=== PATIENT | male | born 1955 | race Caucasian/White ===

== ENCOUNTER 2016-12-07 14:52 | Inpatient (IN) | payer MEDICARE ==
[~2016-12-07] VITALS: Ht 182.9 cm; Wt 97.1 kg
[2016-12-07 16:30] VITALS: BP 142/85
[2016-12-07] MEDS ORDERED: MORP30TA PO (17:22)
[2016-12-07] MEDS ORDERED: MORPHINE SULFATE 2 MG/ML DISP.SYRIN. IV PRN (17:30)
[2016-12-07] MEDS ORDERED: PROCHLORPERAZINE 25 MG SUPP.RECT. PR PRN (17:30)
[2016-12-07] MEDS ORDERED: MAGNESIUM HYDROXIDE 2,400 MG/30 ML ORAL.SUSP. PO PRN (17:30)
[2016-12-07] MEDS ORDERED: oxyCODONE/APAP 5/325 1 TAB TABLET PO PRN ×2 (17:30)
[2016-12-07] MEDS ORDERED: PROCHLORPERAZINE 10 MG/2 ML VIAL. IV PRN (17:30)
[2016-12-07] MEDS ORDERED: oxyCODONE IR 5 MG TABLET PO PRN (17:30)
[2016-12-07] MEDS ORDERED: LORazepam 1 MG TABLET PO PRN (17:30)
[2016-12-07] MEDS ORDERED: CALCIUM CARBONATE 500 MG TAB.CHEW PO PRN (17:30)
[2016-12-07] MEDS ORDERED: ONDANSETRON PF 4 MG/2 ML VIAL. IV PRN (17:30)
[2016-12-07] MEDS ORDERED: LACTULOSE 20 GM/30 ML SOLUTION. PO PRN (17:30)
[2016-12-07] MEDS ORDERED: ZOLPIDEM 5 MG TABLET. PO PRN (17:30)
[2016-12-07] MEDS ORDERED: MAG HYDROX/ALUMINUM HYD/SIMETH 30 ML ORAL.SUSP PO PRN (17:30)
[2016-12-07] MEDS ORDERED: ACETAMINOPHEN 325 MG TABLET. PO PRN (17:30)
[2016-12-07] MEDS ORDERED: BISACODYL 10 MG SUPP.RECT. PR PRN (17:30)
[2016-12-07] MEDS ORDERED: FINA5TAB4 PO (17:32)
[2016-12-07] MEDS ORDERED: CARI350T14 PO (17:32)
[2016-12-07] MEDS ORDERED: SIMV40TA3 PO (17:32)
[2016-12-07] MEDS ORDERED: LAMO200T PO (17:32)
[2016-12-07] MEDS ORDERED: OLAN20TA7 PO (17:32)
[2016-12-07] MEDS ORDERED: LEVO100T5 PO (17:32)
[2016-12-07] MEDS ORDERED: RISP3TAB3 PO (17:32)
[2016-12-07] MEDS ORDERED: MELO15TA23 PO (17:32)
[2016-12-07] MEDS ORDERED: FLUO20CA8 PO (17:32)
[2016-12-07] MEDS ORDERED: OMEP40CA5 PO (17:32)
[2016-12-07] MEDS ORDERED: ZOLP10TA4 PO (17:32)
[2016-12-07] MEDS ORDERED: TAMS0.4C2 PO (17:32)
[2016-12-07] MEDS ORDERED: LOSA1TAB16 PO (17:32)
--- NOTE | 2016-12-07 17:43 | PDOC1 ---
History and Physical Date of Admission Date of Admission DATE: 12/07/16 TIME: 17:31 Identification/Chief Complaint Chief Complaint multiple falls this week Problems: Source Source: Caregiver, Chart review, Patient History of Present Illness History of Present Illness 61 y.o male, transferred from [place] today for need of pulmo service and higher level of care. HE was brought in via ambulance was he has fallen multiple times this week at home. NO head trauma, no injuries, hit his left elbow and buttock, These were all non injury falls luckily, Denies legs being weak but does have RLS. Lives alone at home, no assistive device to ambulate. Concerned sister found him on the ground, Pt not the best historian, HE is fidgety as I see him in ICU and restless. Sister is concerned that he is on too much pain meds, HE is on MS contin 100 BID along with Prozac, ambien 10mg and lamictal and other meds that all together do can cause sedation, He is on these for chronic back pain ( 3 back sxs), RLS. HE has been on these for many yrs. ER MD at [place] started him on a narcan gtt after temporarily "responding" being more awake after a narcan push.CXR was done routinely while he was being worked up for encephalopathy and there was a suspicion lung lesion, hence ff up by CT which shows a 5 CM OLIVIA mass concerning for primary malignancy, Also signs of some post obstructive pneumonitis. Denies weight loss, hemoptysis or dec appetite. WBC 12, HGb ok, NO coags, BMP: Creat 1.8, Na 133, K 3,1 albumin, 2.9, lactate normal at 0,.6. NO fevers. Pt QUIT SMOKING 15 yrs ago, was a heavy smoker before, All these findings relayed to pt and sister at bedside Past Medical History Pulmonary: Bronchitis Psych: Addictions, Depression Musculoskeletal: low back pain, Osteoarthritis Past Surgical History Past Surgical History: Other (left shoulder sx; back sx x3) Family History Family History: Hypertension Social History Smoke: Quit ALCOHOL: none Drugs: None Current Medications Current Medications Current Medications Ondansetron HCl (Zofran) 4 mg PRN Q6HRS PRN IV NAUSEA/VOMITING; Start 12/07/16 at 17:30; Status UNV Prochlorperazine Edisylate (Compazine) 10 mg PRN Q6HRS PRN IV NAUSEA/VOMITING; Start 12/07/16 at 17:30; Status UNV Prochlorperazine (Compazine) 25 mg PRN Q12HR PRN NC NAUSEA/VOMITING; Start 12/07 at 17:30; Status UNV Al Hydroxide/Mg Hydroxide (Mylanta Plus Xs) 30 ml PRN Q3HRS PRN PO HEARTBURN / GAS; Start 12/07/16 at 17:30; Status UNV Calcium Carbonate/ Glycine (Tums) 500 mg PRN Q3HRS PRN PO UPSET STOMACH; Start 12/07/16 at 17:30; Status UNV Zolpidem Tartrate (Ambien) 10 mg PRN QHS PRN PO INSOMNIA, MAY REPEAT IN 1HR; Start 12/07/16 at 17:30; Status UNV Oxycodone HCl (Roxicodone) 5 mg PRN Q3HRS PRN PO BREAKTHROUGH PAIN; Start at 17:30; Status UNV Morphine Sulfate 2 mg PRN Q2HR PRN IV PAIN; Start 12/07/16 at 17:30; Status UNV Oxycodone/ Acetaminophen (Percocet 5/325) 1 tab PRN Q4HRS PRN PO MILD PAIN, 1ST CHOICE; Start 12/07/16 at 17:30; Status UNV Oxycodone/ Acetaminophen (Percocet 5/325) 2 tab PRN Q4HRS PRN PO MODERATE PAIN , SEVERE PAIN; Start 12/07/16 at 17:30; Status UNV Acetaminophen (Tylenol) 650 mg PRN Q6HRS PRN PO Headaches, Temp > 101.5F; Start 12/07/16 at 17:30; Status UNV Docusate Sodium (Colace) 100 mg BID PO ; Start 12/07/16 at 21:00; Status UNV Magnesium Hydroxide (Milk Of Magnesia) 2,400 mg PRN Q12HR PRN PO CONSTIPATION; Start 12/07/16 at 17:30; Status UNV Lactulose 20 gm PRN Q12HR PRN PO CONSTIPATION; Start 12/07/16 at 17:30; Status UNV Bisacodyl (Dulcolax Supp) 10 mg PRN DAILY PRN NC CONSTIPATION; Start 12/07/16 at 17:30; Status UNV Heparin Sodium (Porcine) (Heparin Sq) 5,000 unit Q8HRS SQ ; Start 12/07/16 at 22: 00; Status UNV Lorazepam (Ativan) 2 mg PRN Q4HRS PRN IV ANXIETY / AGITATION; Start 12/07/16 at 17:30; Status UNV Lorazepam (Ativan) 1 mg PRN Q6HRS PRN PO ANXIETY / AGITATION; Start 12/07/16 at 17:30; Status UNV Morphine Sulfate (Ms Contin) 30 mg BID PO ; Start 12/07/16 at 21:00; Status UNV Active Scripts Active Reported Morphine Sulfate 30 Mg Tablet 100 Mg PO BID Allergies Allergies: Coded Allergies: No Known Drug Allergies (Unverified , 12/07/16) ROS Review of System limited, restless, but he denies anything Physical Exam General: Alert, Oriented X3, Cooperative, No acute distress HEENT: Atraumatic, PERRLA Lungs: Normal air movement Heart: S1S2, RRR, no thrills, no rubs, no gallops, no murmurs Cardiovascular: S1, S2 Breasts: Normal, Rt breast nml w/o mass, Lt breast nml w/o mass, Nipples normal Abdomen: Normal bowel sounds, Soft, No tenderness, No hepatosplenomegaly, No masses Male Genitals Exam: normal genitalia, normal prostate Rectal Exam: not examined PELVIC: Nml ext genitalia Extremities: No clubbing, No cyanosis, No edema, Normal pulses, No tenderness/ swelling Skin: No rashes, No breakdown, No significant lesion Neuro: Normal gait, Normal speech, Strength at 5/5 X4 ext, Normal tone, Sensation intact, Cranial nerves 3-12 NL, Reflexes 2+ Psych/Mental Status: Mental status NL, Mood NL VTE Prophylaxis Ordered VTE Prophylaxis Devices: Yes VTE Pharmacological Prophylaxi: Yes Assessment/Plan Assessment/Plan 1. 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 NEw 5 cm OLIVIA mass in an ex smoker suspicious for malignancy 3. RLS 4. Chronic back pain on high doses opiates 5. PRev smoker, quit 15yrs ago 6. Post obstructive pneumonitis 7. REactive lymphadenopathy 8. MOd PCM with albumin 2.9 9. Hyponatremia 10, Hypokalemia PLAn: Admit 2 MN MEd sx floor is ok Dc narcan gtt - wide awake, getting restless actually, and also to avoid withdrawal SZ Lower dose of pain meds and some anxiolytics Will need tissue bx and metastatic w/up for new lung mass PUlmo consult IR consult for lung bx NPO post MN in case bx Reg diet tonight Check coags prior to bx BAsic labs again sarai Replace K orally (k 3.1) Start empiric abx given pneumonitis, WBC 12 and lymphadenopathy DVT prophy heparin SQ NO nephrotoxins (Creat 1.8) Check UA re MATTHEW IVF for MATTHEW and hyponatremia Nutrition consult for pCM Seen in ICU 10 HI LOPEZ MD Dec 07, 2016 17:43
[2016-12-07] MEDS ORDERED: POTASSIUM CHLORIDE 20 MEQ TABLET.ER. PO ONE (17:45)
[2016-12-07] MEDS ORDERED: levOFLOXacin PER PHARMACY. MC PRN (17:45)
[2016-12-07 17:50] VITALS: BP 134/77
[2016-12-07] MEDS: IV NORMAL SALINE 1000ML BAG 1,000 ML IV SCH (17:55)
[2016-12-07 20:00] VITALS: BP 108/66
[2016-12-07 20:42] LABS: BILIRUBIN,URINE NEGATIVE (NEG); GLUCOSE,URINE NEGATIVE (NEG); NITRITE,URINE NEGATIVE (NEG); PROTEIN,URINE NEGATIVE (NEG-TRACE)
[2016-12-07 20:46] LABS: BACTERIA,URINE 0 /HPF (0-FEW); SQUAMOUS EPITHELIAL CELL,UR OCC /LPF; WBC,URINE OCC /HPF (0-4)
[2016-12-07] MEDS: MORPHINE ER 30 MG TABLET.ER PO SCH (21:00)
[2016-12-07] MEDS: DOCUSATE SODIUM 100 MG CAPSULE. PO SCH (21:19)
[2016-12-07] MEDS: CARISOPRODOL 350 MG TABLET PO SCH (21:19)
[2016-12-07] MEDS: risperiDONE 1 MG TABLET. PO SCH (21:19)
[2016-12-07] MEDS: SIMVASTATIN 40 MG TABLET. PO SCH (21:19)
[2016-12-07] MEDS: lamoTRIgine 100 MG TABLET. PO SCH (21:19)
[2016-12-07] MEDS: OLANZapine 5 MG TABLET PO SCH (21:19)
[2016-12-07] MEDS: HEPARIN PF for SUB-Q USE 5,000 UNIT/0.5 ML VIAL. SQ SCH (22:24)
[2016-12-07 23:29] VITALS: BP 95/57
[2016-12-08 04:00] VITALS: BP 111/66
[2016-12-08 04:04] LABS: BASO % 0 % (0-3); EOS % 1 % (0-3); HEMATOCRIT 30.7 % (39.0-53.0); HEMOGLOBIN 10.3 g/dL (13.0-17.5); LYMPH # 1.6 x10^3/uL (1.0-4.8); LYMPH % 17 % (24-48); MEAN CORPUSCULAR HEMOGLOBIN 28 pg (25-35); MEAN CORPUSCULAR HGB CONC 34 g/dL (31-37); MEAN CORPUSCULAR VOLUME 84 fL (79-100); MONO % 5 % (0-9); NEUT % 77 % (31-73); PLATELET COUNT 204 x10^3/uL (140-400); RED BLOOD COUNT 3.64 x10^6/uL (4.30-5.70); RED CELL DISTRIBUTION WIDTH 14.2 % (11.5-14.5); WHITE BLOOD COUNT 9.7 x10^3/uL (4.0-11.0)
[2016-12-08 04:13] LABS: INR 1.2 (0.8-1.1); PROTHROMBIN TIME PATIENT 14.5 SEC (11.7-14.0)
[2016-12-08 04:33] LABS: ALBUMIN 2.4 g/dL (3.4-5.0); ALBUMIN/GLOBULIN RATIO 0.7 (1.0-1.7); CREATININE 1.1 mg/dL (0.7-1.3); GFR 68.3; MAGNESIUM 2.3 mg/dL (1.8-2.4); PHOSPHORUS 2.7 mg/dL (2.6-4.7); POTASSIUM 3.3 mmol/L (3.5-5.1); TOTAL BILIRUBIN 0.3 mg/dL (0.2-1.0); TOTAL PROTEIN 5.8 g/dL (6.4-8.2)
[2016-12-08] MEDS: LEVOTHYROXINE 100 MCG TABLET PO SCH (06:25)
[2016-12-08] MEDS: HEPARIN PF for SUB-Q USE 5,000 UNIT/0.5 ML VIAL. SQ SCH ×3 (06:30→22:03)
[2016-12-08 07:05] VITALS: BP 126/60
[2016-12-08] MEDS: PANTOPRAZOLE 40 MG TABLET.DR. PO SCH ×2 (07:30→12:31)
[2016-12-08] MEDS: risperiDONE 1 MG TABLET. PO SCH ×3 (09:00→21:57)
[2016-12-08] MEDS: DOCUSATE SODIUM 100 MG CAPSULE. PO SCH ×3 (09:00→21:58)
[2016-12-08] MEDS: MORPHINE ER 30 MG TABLET.ER PO SCH ×3 (09:00→21:58)
[2016-12-08] MEDS: LOSARTAN POTASSIUM 50 MG TABLET. PO SCH ×2 (09:00→12:34)
[2016-12-08] MEDS ORDERED: NON FORMULARY ITEM (Losartan/Hydrochlorothiazide (Losartan-Hctz 50-12.5 Mg Tab) 1 TAB) PO SCH (09:00)
[2016-12-08] MEDS: TAMSULOSIN 0.4 MG CAP.ER.24H. PO SCH ×2 (09:00→12:30)
[2016-12-08] MEDS: FINASTERIDE 5 MG TABLET. PO SCH ×2 (09:00→12:31)
[2016-12-08] MEDS: FLUoxetine HCL 20 MG CAPSULE PO SCH ×2 (09:00→12:30)
[2016-12-08] MEDS: hydroCHLOROthiazide 12.5 MG CAPSULE PO SCH ×2 (09:00→12:31)
[2016-12-08] MEDS: CARISOPRODOL 350 MG TABLET PO SCH ×3 (09:00→21:57)
[2016-12-08] MEDS: lamoTRIgine 100 MG TABLET. PO SCH ×3 (09:00→21:58)
[2016-12-08] MEDS ORDERED: POTASSIUM CHLORIDE 20MEQ 50 ML IV ONE (09:45)
[2016-12-08] MEDS: IV NORMAL SALINE 1000ML BAG 1,000 ML IV SCH ×2 (09:49→13:45)
--- NOTE | 2016-12-08 09:57 | PDOC ---
Provider Note Provider Note dictated will do bronch today. if non-diagnostic, then ct guided biopsy PJ RUBIN MD Dec 08, 2016 09:57
--- NOTE | 2016-12-08 10:18 | CONS ---
DATE OF CONSULTATION: 12/08/2016 PULMONARY CONSULTATION ATTENDING PHYSICIAN: Dr. Elmore. REASON FOR CONSULTATION: Lung mass. HISTORY OF PRESENT ILLNESS: The patient is a 61-year-old male who has been a smoker for 34 years. He quit 10 years ago. He was brought into [facility] after he has fallen multiple times. There was no head trauma. The patient was noted to have an abnormal CT chest. I have personally reviewed the CT chest and it shows a 5 cm mass in the left upper lobe. There is also left hilar adenopathy and also adenopathy in the aortopulmonary window. There are infiltrates in the left upper lobe area. These findings are suggesting a primary malignancy with possible postobstructive process. There was mild precarinal adenopathy. The patient has been losing weight, lost about 20 pounds. No headaches. No nausea, vomiting. He does have some mild diarrhea. No focal weakness, but has overall generalized weakness. He was taking too much narcotics for his back and neck pain, which he had for 14 years. I have been asked to see him for further evaluation. He is now fully awake and following commands. PAST MEDICAL HISTORY: Suspected COPD, could be moderate to severe; history of narcotic dependence, history of depression, low back pain and osteoarthritis. PAST SURGICAL HISTORY: Left shoulder surgery and back surgery. FAMILY HISTORY: Hypertension. ALLERGIES: None. SOCIAL HISTORY: Smoker for 34 years before quitting 10 years ago. 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 MEDICATIONS: All reviewed as listed in the MRAD. REVIEW OF SYSTEMS: Twelve-point system obtained, pertinent positives discussed in history of present illness, otherwise noncontributory. All systems that were negative were reviewed as well. PHYSICAL EXAMINATION: VITAL SIGNS: Reviewed. Pulse ox 94% on room air, afebrile. NECK: Supple. LUNGS: Diminished breath sounds. CARDIOVASCULAR: Regular rate and rhythm. ABDOMEN: Soft, nontender. EXTREMITIES: With no pitting edema. LABORATORY DATA: Reviewed. White cell count 9.7, hemoglobin 10.3, platelets are 204. BUN 14, creatinine 1.1. INR 1.2. IMPRESSION: 1. A 5 cm left upper lobe mass with left hilar and aortopulmonary mediastinal adenopathy. These findings are highly suggestive of primary bronchogenic cancer. 2. Possible postobstructive pneumonitis. 3. Underlying suspected chronic obstructive pulmonary disease. 4. Chronic narcotic dependence. RECOMMENDATIONS: 1. Discussed with the patient and his sister. Risks and benefits of bronchoscopy were explained and they agreed to proceed with the procedure. 2. If the bronchoscopy is nondiagnostic, then we will do a CT-guided biopsy. 3. We will obtain full PFTs. 4. Continue bronchodilators. 5. Continue present empiric antibiotics. 6. Discussed with Dr. Elmore. We will follow along with you. Further recommendations to follow. PJ RUBIN MD DR: MAX/nahid JOB#: [id number] / [id number]
[2016-12-08] MEDS ORDERED: IV RINGERS,LACTATED 1000ML 1,000 ML IV SCH (10:44)
[2016-12-08] MEDS ORDERED: fentaNYL PF VIAL 100 MCG/2 ML VIAL IV PRN ×2 (10:45)
[2016-12-08] MEDS ORDERED: PROCHLORPERAZINE 10 MG/2 ML VIAL. IV PRN (10:45)
[2016-12-08] MEDS ORDERED: ONDANSETRON PF 4 MG/2 ML VIAL. IV PRN (10:45)
[2016-12-08] MEDS ORDERED: HYDROmorphone 2 MG/ML VIAL IV PRN (10:45)
[2016-12-08] MEDS ORDERED: LIDOCAINE 1% 1 ML SYRINGE. ID PRN (10:45)
[2016-12-08] MEDS ORDERED: MORPHINE SULFATE 2 MG/ML DISP.SYRIN. IV PRN (10:45)
[2016-12-08] MEDS ORDERED: ALBUTEROL SULFATE 2.5 MG/3 ML NEBU. ONE (10:47)
[2016-12-08] MEDS ORDERED: LIDOCAINE 2% PF Vial for OR 5 ML VIAL. ONE (10:49)
[2016-12-08] MEDS ORDERED: PROPOFOL 20 ML IV ONE (10:49)
[2016-12-08] MEDS ORDERED: ALBUTEROL SULFATE 2.5 MG/3 ML NEBU. NEB ONE (11:00)
--- NOTE | 2016-12-08 11:01 | PDOC ---
PROGRESS NOTES Chief Complaint Chief Complaint 1. 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 NEw 5 cm OLIVIA mass in an ex smoker suspicious for malignancy 3. RLS 4. Chronic back pain on high doses opiates 5. PRev smoker, quit 15yrs ago 6. Post obstructive pneumonitis 7. REactive lymphadenopathy 8. MOd PCM with albumin 2.9 9. Hyponatremia, mild 133 10, Hypokalemia, replaced History of Present Illness History of Present Illness Up in bed, no issues/calls overnight OFf narcan gtt - my current pain regimen working - not withdrawing and not drowsy at all Dw pulmo, bronch today, If unable to get tissue sample, IR biopsy NO hemoptysis, SOA etc OVF running for hyponat K low - will replace iV since NPO for bronch PLAN: Cont empiric levaquin per pharmacy for post obstructive pneumonitis on CT Monitor MATTHEW and hyponat Bronch later, if not successful then IR lung bx. If cancer, will need heme onc Cont adderall - needs it Dw family and pulmo and RN Vitals Vitals Vital Signs Date Time Temp Pulse Resp B/P (MAP) Pulse Ox O2 Delivery O2 Flow Rate FiO2 12/08/16 10:45 Room Air 3.0 12/08/16 10:45 97.6 67 18 95 97.6 12/08/16 07:05 126/60 (82) Physical Exam General: Alert, Oriented X3, Cooperative, No acute distress Abdomen: Normal bowel sounds, Soft, No tenderness, No hepatosplenomegaly, No masses Extremities: No clubbing, No cyanosis, No edema, Normal pulses, No tenderness/ swelling Skin: No rashes, No breakdown, No significant lesion Labs LABS Laboratory Tests Test 12/07/16 20:30 12/08/16 03:20 Urine Collection Type Unknown Urine Color Yellow Urine Clarity Clear Urine pH 6.0 Urine Specific [place] <=1.005 Urine Protein Negative mg/dL (NEG-TRACE) Urine Glucose (UA) Negative mg/dL (NEG) Urine Ketones (Stick) Negative mg/dL (NEG) Urine Blood Moderate (NEG) Urine Nitrite Negative (NEG) Urine Bilirubin Negative (NEG) Urine Urobilinogen Dipstick 1.0 mg/dL (0.2 mg/dL) Urine Leukocyte Esterase Negative (NEG) Urine RBC 11-20 /HPF (0-2) Urine WBC Occ /HPF (0-4) Urine Squamous Epithelial Cells Occ /LPF Urine Bacteria 0 /HPF (0-FEW) White Blood Count 9.7 x10^3/uL (4.0-11.0) Red Blood Count 3.64 x10^6/uL (4.30-5.70) Hemoglobin 10.3 g/dL (13.0-17.5) Hematocrit 30.7 % (39.0-53.0) Mean Corpuscular Volume 84 fL (79-100) Mean Corpuscular Hemoglobin 28 pg (25-35) Mean Corpuscular Hemoglobin Concent 34 g/dL (31-37) Red Cell Distribution Width 14.2 % (11.5-14.5) Platelet Count 204 x10^3/uL (140-400) Neutrophils (%) (Auto) 77 % (31-73) Lymphocytes (%) (Auto) 17 % (24-48) Monocytes (%) (Auto) 5 % (0-9) Eosinophils (%) (Auto) 1 % (0-3) Basophils (%) (Auto) 0 % (0-3) Neutrophils # (Auto) 7.5 x10^3uL (1.8-7.7) Lymphocytes # (Auto) 1.6 x10^3/uL (1.0-4.8) Monocytes # (Auto) 0.5 x10^3/uL (0.0-1.1) Eosinophils # (Auto) 0.1 x10^3/uL (0.0-0.7) Basophils # (Auto) 0.0 x10^3/uL (0.0-0.2) Prothrombin Time 14.5 SEC (11.7-14.0) Prothromb Time International Ratio 1.2 (0.8-1.1) Sodium Level 138 mmol/L (136-145) Potassium Level 3.3 mmol/L (3.5-5.1) Chloride Level 103 mmol/L (98-107) Carbon Dioxide Level 29 mmol/L (21-32) Anion Gap 6 (6-14) Blood Urea Nitrogen 14 mg/dL (8-26) Creatinine 1.1 mg/dL (0.7-1.3) Estimated GFR (Cockcroft-Gault) 68.3 BUN/Creatinine Ratio 13 (6-20) Glucose Level 152 mg/dL (70-99) Calcium Level 8.0 mg/dL (8.5-10.1) Phosphorus Level 2.7 mg/dL (2.6-4.7) Magnesium Level 2.3 mg/dL (1.8-2.4) Total Bilirubin 0.3 mg/dL (0.2-1.0) Aspartate Amino Transf (AST/SGOT) 70 U/L (15-37) Alanine Aminotransferase (ALT/SGPT) 43 U/L (16-63) Alkaline Phosphatase 95 U/L (46-116) Total Protein 5.8 g/dL (6.4-8.2) Albumin 2.4 g/dL (3.4-5.0) Albumin/Globulin Ratio 0.7 (1.0-1.7) Review of Systems Review of Systems denies 14pt Comment Review of Relevant I have reviewed the following items jelly (where applicable) has been applied. Labs Laboratory Tests Test 12/07/16 20:30 12/08/16 03:20 Urine Collection Type Unknown Urine Color Yellow Urine Clarity Clear Urine pH 6.0 Urine Specific [place] <=1.005 Urine Protein Negative mg/dL (NEG-TRACE) Urine Glucose (UA) Negative mg/dL (NEG) Urine Ketones (Stick) Negative mg/dL (NEG) Urine Blood Moderate (NEG) Urine Nitrite Negative (NEG) Urine Bilirubin Negative (NEG) Urine Urobilinogen Dipstick 1.0 mg/dL (0.2 mg/dL) Urine Leukocyte Esterase Negative (NEG) Urine RBC 11-20 /HPF (0-2) Urine WBC Occ /HPF (0-4) Urine Squamous Epithelial Cells Occ /LPF Urine Bacteria 0 /HPF (0-FEW) White Blood Count 9.7 x10^3/uL (4.0-11.0) Red Blood Count 3.64 x10^6/uL (4.30-5.70) Hemoglobin 10.3 g/dL (13.0-17.5) Hematocrit 30.7 % (39.0-53.0) Mean Corpuscular Volume 84 fL (79-100) Mean Corpuscular Hemoglobin 28 pg (25-35) Mean Corpuscular Hemoglobin Concent 34 g/dL (31-37) Red Cell Distribution Width 14.2 % (11.5-14.5) Platelet Count 204 x10^3/uL (140-400) Neutrophils (%) (Auto) 77 % (31-73) Lymphocytes (%) (Auto) 17 % (24-48) Monocytes (%) (Auto) 5 % (0-9) Eosinophils (%) (Auto) 1 % (0-3) Basophils (%) (Auto) 0 % (0-3) Neutrophils # (Auto) 7.5 x10^3uL (1.8-7.7) Lymphocytes # (Auto) 1.6 x10^3/uL (1.0-4.8) Monocytes # (Auto) 0.5 x10^3/uL (0.0-1.1) Eosinophils # (Auto) 0.1 x10^3/uL (0.0-0.7) Basophils # (Auto) 0.0 x10^3/uL (0.0-0.2) Prothrombin Time 14.5 SEC (11.7-14.0) Prothromb Time International Ratio 1.2 (0.8-1.1) Sodium Level 138 mmol/L (136-145) Potassium Level 3.3 mmol/L (3.5-5.1) Chloride Level 103 mmol/L (98-107) Carbon Dioxide Level 29 mmol/L (21-32) Anion Gap 6 (6-14) Blood Urea Nitrogen 14 mg/dL (8-26) Creatinine 1.1 mg/dL (0.7-1.3) Estimated GFR (Cockcroft-Gault) 68.3 BUN/Creatinine Ratio 13 (6-20) Glucose Level 152 mg/dL (70-99) Calcium Level 8.0 mg/dL (8.5-10.1) Phosphorus Level 2.7 mg/dL (2.6-4.7) Magnesium Level 2.3 mg/dL (1.8-2.4) Total Bilirubin 0.3 mg/dL (0.2-1.0) Aspartate Amino Transf (AST/SGOT) 70 U/L (15-37) Alanine Aminotransferase (ALT/SGPT) 43 U/L (16-63) Alkaline Phosphatase 95 U/L (46-116) Total Protein 5.8 g/dL (6.4-8.2) Albumin 2.4 g/dL (3.4-5.0) Albumin/Globulin Ratio 0.7 (1.0-1.7) Laboratory Tests Test 12/07/16 20:30 12/08/16 03:20 Urine Collection Type Unknown Urine Color Yellow Urine Clarity Clear Urine pH 6.0 Urine Specific [place] <=1.005 Urine Protein Negative mg/dL (NEG-TRACE) Urine Glucose (UA) Negative mg/dL (NEG) Urine Ketones (Stick) Negative mg/dL (NEG) Urine Blood Moderate (NEG) Urine Nitrite Negative (NEG) Urine Bilirubin Negative (NEG) Urine Urobilinogen Dipstick 1.0 mg/dL (0.2 mg/dL) Urine Leukocyte Esterase Negative (NEG) Urine RBC 11-20 /HPF (0-2) Urine WBC Occ /HPF (0-4) Urine Squamous Epithelial Cells Occ /LPF Urine Bacteria 0 /HPF (0-FEW) White Blood Count 9.7 x10^3/uL (4.0-11.0) Red Blood Count 3.64 x10^6/uL (4.30-5.70) Hemoglobin 10.3 g/dL (13.0-17.5) Hematocrit 30.7 % (39.0-53.0) Mean Corpuscular Volume 84 fL (79-100) Mean Corpuscular Hemoglobin 28 pg (25-35) Mean Corpuscular Hemoglobin Concent 34 g/dL (31-37) Red Cell Distribution Width 14.2 % (11.5-14.5) Platelet Count 204 x10^3/uL (140-400) Neutrophils (%) (Auto) 77 % (31-73) Lymphocytes (%) (Auto) 17 % (24-48) Monocytes (%) (Auto) 5 % (0-9) Eosinophils (%) (Auto) 1 % (0-3) Basophils (%) (Auto) 0 % (0-3) Neutrophils # (Auto) 7.5 x10^3uL (1.8-7.7) Lymphocytes # (Auto) 1.6 x10^3/uL (1.0-4.8) Monocytes # (Auto) 0.5 x10^3/uL (0.0-1.1) Eosinophils # (Auto) 0.1 x10^3/uL (0.0-0.7) Basophils # (Auto) 0.0 x10^3/uL (0.0-0.2) Prothrombin Time 14.5 SEC (11.7-14.0) Prothromb Time International Ratio 1.2 (0.8-1.1) Sodium Level 138 mmol/L (136-145) Potassium Level 3.3 mmol/L (3.5-5.1) Chloride Level 103 mmol/L (98-107) Carbon Dioxide Level 29 mmol/L (21-32) Anion Gap 6 (6-14) Blood Urea Nitrogen 14 mg/dL (8-26) Creatinine 1.1 mg/dL (0.7-1.3) Estimated GFR (Cockcroft-Gault) 68.3 BUN/Creatinine Ratio 13 (6-20) Glucose Level 152 mg/dL (70-99) Calcium Level 8.0 mg/dL (8.5-10.1) Phosphorus Level 2.7 mg/dL (2.6-4.7) Magnesium Level 2.3 mg/dL (1.8-2.4) Total Bilirubin 0.3 mg/dL (0.2-1.0) Aspartate Amino Transf (AST/SGOT) 70 U/L (15-37) Alanine Aminotransferase (ALT/SGPT) 43 U/L (16-63) Alkaline Phosphatase 95 U/L (46-116) Total Protein 5.8 g/dL (6.4-8.2) Albumin 2.4 g/dL (3.4-5.0) Albumin/Globulin Ratio 0.7 (1.0-1.7) Medications Current Medications Ondansetron HCl (Zofran) 4 mg PRN Q6HRS PRN IV NAUSEA/VOMITING; Start 12/07/16 at 17:30 Prochlorperazine Edisylate (Compazine) 10 mg PRN Q6HRS PRN IV NAUSEA/VOMITING; Start 12/07/16 at 17:30 Prochlorperazine (Compazine) 25 mg PRN Q12HR PRN OR NAUSEA/VOMITING; Start 12/07 at 17:30 Al Hydroxide/Mg Hydroxide (Mylanta Plus Xs) 30 ml PRN Q3HRS PRN PO HEARTBURN / GAS; Start 12/07/16 at 17:30 Calcium Carbonate/ Glycine (Tums) 500 mg PRN Q3HRS PRN PO UPSET STOMACH; Start 12/07/16 at 17:30 Zolpidem Tartrate (Ambien) 10 mg PRN QHS PRN PO INSOMNIA, MAY REPEAT IN 1HR; Start 12/07/16 at 17:30 Oxycodone HCl (Roxicodone) 5 mg PRN Q3HRS PRN PO BREAKTHROUGH PAIN; Start at 17:30 Morphine Sulfate 2 mg PRN Q2HR PRN IV PAIN; Start 12/07/16 at 17:30 Oxycodone/ Acetaminophen (Percocet 5/325) 1 tab PRN Q4HRS PRN PO MILD PAIN, 1ST CHOICE; Start 12/07/16 at 17:30 Oxycodone/ Acetaminophen (Percocet 5/325) 2 tab PRN Q4HRS PRN PO MODERATE PAIN , SEVERE PAIN; Start 12/07/16 at 17:30 Acetaminophen (Tylenol) 650 mg PRN Q6HRS PRN PO Headaches, Temp > 101.5F; Start 12/07/16 at 17:30 Docusate Sodium (Colace) 100 mg BID PO Last administered on 12/07/16 21:19; Start 12/07/16 at 21:00 Magnesium Hydroxide (Milk Of Magnesia) 2,400 mg PRN Q12HR PRN PO CONSTIPATION; Start 12/07/16 at 17:30 Lactulose 20 gm PRN Q12HR PRN PO CONSTIPATION; Start 12/07/16 at 17:30 Bisacodyl (Dulcolax Supp) 10 mg PRN DAILY PRN OR CONSTIPATION; Start 12/07/16 at 17:30 Heparin Sodium (Porcine) (Heparin Sq) 5,000 unit Q8HRS SQ Last administered on 12/08/16 06:30; Start 12/07/16 at 22:00 Lorazepam (Ativan) 2 mg PRN Q4HRS PRN IV ANXIETY / AGITATION; Start 12/07/16 at 17:30 Lorazepam (Ativan) 1 mg PRN Q6HRS PRN PO ANXIETY / AGITATION Last administered on 12/07/16 17:48; Start 12/07/16 at 17:30 Morphine Sulfate (Ms Contin) 30 mg BID PO ; Start 12/07/16 at 21:00 Levofloxacin/ Dextrose (Levaquin Per Pharmacy) 1 each PRN DAILY PRN MC SEE COMMENTS; Start 12/07/16 at 17:45 Sodium Chloride 1,000 ml @ 100 mls/hr Q10H IV Last administered on 12/08/16 09:49; Start 12/07/16 at 17:45 Potassium Chloride (Klor-Con) 40 meq 1X ONCE PO Last administered on 12/07/16 18:47; Start 12/07/16 at 17:45; Stop 12/07/16 at 17:50; Status DC Levofloxacin/ Dextrose 100 ml @ 100 mls/hr Q24H IV Last administered on 18:39; Start 12/07/16 at 18:00 Carisoprodol (Soma) 350 mg BID PO Last administered on 12/07/16 21:19; Start at 21:00 Finasteride (Proscar) 5 mg DAILY PO ; Start 12/08/16 at 09:00 Fluoxetine HCl (PROzac) 20 mg DAILY PO ; Start 12/08/16 at 09:00 Levothyroxine Sodium (Synthroid) 100 mcg DAILY07 PO Last administered on 06:25; Start 12/08/16 at 07:00 Simvastatin (Zocor) 40 mg QHS PO Last administered on 12/07/16 21:19; Start 12/07/16 at 21:00 Tamsulosin HCl (Flomax) 0.4 mg DAILY PO ; Start 12/08/16 at 09:00 Lamotrigine (LaMICtal) 200 mg BID PO Last administered on 12/07/16 21:19; Start 12/07/16 at 21:00 Non-Formulary Medication 1 tab DAILY PO ; Start 12/08/16 at 09:00; Status UNV Olanzapine (ZyPREXA) 20 mg QHS PO Last administered on 12/07/16 21:19; Start at 21:00 Pantoprazole Sodium (Protonix) 40 mg DAILYAC PO ; Start 12/08/16 at 07:30 Risperidone (RisperDAL) 3 mg BID PO Last administered on 12/07/16 21:19; Start 12/07/16 at 21:00 Losartan Potassium (Cozaar) 50 mg DAILY PO ; Start 12/08/16 at 09:00 Hydrochlorothiazide (Microzide) 12.5 mg DAILY PO ; Start 12/08/16 at 09:00 Potassium Chloride 50 ml @ 50 mls/hr 1X ONCE IV ; Start 12/08/16 at 09:45; Stop 12/08/16 at 10:44; Status UNV Potassium Chloride 100 ml @ 100 mls/hr Q1H IV ; Start 12/08/16 at 10:00; Stop 12/08/16 at 11:59 Ondansetron HCl (Zofran) 4 mg PRN Q6HRS PRN IV NAUSEA/VOMITING; Start 12/08/16 at 10:45; Stop 12/09/16 at 10:44 Fentanyl Citrate (Fentanyl 2ml Vial) 25 mcg PRN Q5MIN PRN IV MILD PAIN; Start 12/08/16 at 10:45; Stop 12/09/16 at 10:44 Fentanyl Citrate (Fentanyl 2ml Vial) 50 mcg PRN Q5MIN PRN IV MODERATE PAIN; Start 12/08/16 at 10:45; Stop 12/09/16 at 10:44 Morphine Sulfate 1 mg PRN Q10MIN PRN IV SEVERE PAIN; Start 12/08/16 at 10:45; Stop 12/09/16 at 10:44 Ringer's Solution 1,000 ml @ 30 mls/hr Q24H IV ; Start 12/08/16 at 10:44; Stop 12/08/16 at 22:43 Lidocaine HCl 2 ml PRN 1X PRN ID PRIOR TO IV START; Start 12/08/16 at 10:45; Stop 12/09/16 at 10:44 Hydromorphone HCl (Dilaudid) 0.5 mg PRN Q10MIN PRN IV SEV PAIN, Second choice; Start 12/08/16 at 10:45; Stop 12/09/16 at 10:44 Prochlorperazine Edisylate (Compazine) 5 mg PACU PRN PRN IV NAUSEA, MRX1; Start 12/08/16 at 10:45; Stop 12/09/16 at 10:44 Albuterol Sulfate (Ventolin Neb Soln) 2.5 mg 1X ONCE NEB Last administered on 12/08/16t 10:53; Start 12/08/16 at 11:00; Stop 12/08/16 at 11:01 Active Scripts Active Reported Fluoxetine Hcl 20 Mg Capsule 1 Cap PO DAILY Finasteride 5 Mg Tablet 5 Mg PO DAILY Lamotrigine 200 Mg Tablet 1 Tab PO BID Olanzapine 20 Mg Tablet 1 Tab PO QHS Losartan-Hctz 50-12.5 Mg Tab (Losartan/Hydrochlorothiazide) 1 Each Tablet 1 Tab PO DAILY Omeprazole 40 Mg Capsule.dr 1 Cap PO DAILY Simvastatin 40 Mg Tablet 1 Tab PO QHS Meloxicam 15 Mg Tablet 1 Tab PO DAILY Tamsulosin Hcl 0.4 Mg Cap.er.24h 1 Cap PO DAILY Levothyroxine Sodium 100 Mcg Tablet 1 Tab PO DAILY Risperidone 3 Mg Tablet 1 Tab PO BID Carisoprodol 350 Mg Tablet 1 Tab PO BID Zolpidem Tartrate 10 Mg Tablet 1 Tab PO QHS Morphine Sulfate 30 Mg Tablet 100 Mg PO BID Vitals/I & O Vital Sign - Last 24 Hours 12/07/16 12/07/16 12/07/16 12/07/16 16:30 16:30 17:50 20:00 Temp 98.4 98.4 98.6 98.4 98.4 98.6 Pulse 96 98 79 Resp 16 16 B/P (MAP) 142/85 (104) 134/77 (96) 108/66 (80) Pulse Ox 95 98 90 O2 Delivery Room Air Room Air Room Air Room Air 12/07/16 12/07/16 12/08/16 12/08/16 20:00 23:29 04:00 07:05 Temp 98.6 98.3 98.2 98.6 98.3 98.2 Pulse 56 88 77 Resp 16 18 19 B/P (MAP) 95/57 (70) 111/66 (81) 126/60 (82) Pulse Ox 93 94 94 O2 Delivery Room Air Nasal Cannula Nasal Cannula Room Air O2 Flow Rate 3.0 3.0 12/08/16 12/08/16 12/08/16 08:00 10:45 10:45 Temp 97.6 97.6 Pulse 67 Resp 18 Pulse Ox 95 O2 Delivery Room Air Room Air O2 Flow Rate 3.0 3.0 Intake and Output 12/07/16 12/07/16 12/08/16 15:00 23:00 07:00 Intake Total 250 ml Output Total 1300 ml Balance -1050 ml HI LOPEZ MD Dec 08, 2016 11:01
--- NOTE | 2016-12-08 11:50 | PDOC4 ---
PROCEDURE Procedure BRONCH endobronchial lesion OLIVIA, biopsy done PJ RUBIN MD Dec 08, 2016 11:50
--- NOTE | 2016-12-08 12:01 | OP ---
DATE OF SURGERY: BRONCHOSCOPY NOTE ATTENDING PHYSICIAN: Dr. Elmore. PROCEDURE: Bronchoscopy. INDICATION: Lung mass. DESCRIPTION OF PROCEDURE: Informed consent was obtained from the patient and his sister. They both agreed to proceed with the procedure. All risks and benefits were explained. Propofol was used by Anesthesia for sedation. Bronchoscope was introduced through the left nostril. The upper airway was passed. Vocal cords move equally with respiration. Trachea was entered. No tracheal lesions seen. Mild frothy secretions seen. Kathleen was sharp. The right lung was first examined. All subsegments of right upper, right middle and right lower lobe were examined. No significant purulent secretions seen and no endobronchial lesions seen. The left lung was then examined. There was a large endobronchial lesion totally occluding the left upper lobe bronchus. This was causing narrowing of the lingular opening as well. Multiple biopsies x 3 were performed along with cytology brush and bronchial wash from this area. No significant bleeding post-biopsy were noticed. The left lower lobe was patent. The patient tolerated the procedure well. IMPRESSION: 1. Large endobronchial mass causing total occlusion of the opening of the left upper lobe bronchus. 2. Biopsy x 3, cytology brush x 2 and bronchial wash was performed from this area. 3. The left lower lobe and the rest of the right lung were patent. 4. Follow the results of the biopsy. PJ RUBIN MD DR: MAX/nahid JOB#: [id number] / [id number] HI Shelton MD
[2016-12-08] MEDS: POTASSIUM CHLORIDE 10MEQ 100 ML IV SCH ×2 (12:38→15:06)
[2016-12-08 14:31] VITALS: BP 90/51
[2016-12-08 20:00] VITALS: BP 113/72
[2016-12-08] MEDS: OLANZapine 5 MG TABLET PO SCH (21:57)
[2016-12-08] MEDS: SIMVASTATIN 40 MG TABLET. PO SCH (21:58)
[2016-12-09] VITALS (7 sets, daily range): BP systolic 106–132; BP diastolic 50–73
[2016-12-09] MEDS: LEVOTHYROXINE 100 MCG TABLET PO SCH (06:17)
[2016-12-09] MEDS: HEPARIN PF for SUB-Q USE 5,000 UNIT/0.5 ML VIAL. SQ SCH ×3 (06:18→21:58)
[2016-12-09] MEDS: IV NORMAL SALINE 1000ML BAG 1,000 ML IV SCH (06:23)
--- NOTE | 2016-12-09 06:25 | ACF ---
Admission Forms Criteria PULMONARY DISEASE GRG Clinical Indications for Admission to Inpatient Care ([place]/check or initial the applicable condition/criteria) Hospital admission is needed for appropriate care of the patient because of 1 or more of the following(1)(2): [ ]I. Impending or actual respiratory arrest. See Respiratory Failure GRG guideline for severe respiratory disease and long-term mechanical ventilation patients. (3)(4) (5) [ ]II. Severe airflow or ventilation abnormalities (not responsive to emergency and observation care treatment as appropriate) as indicated by 1 or more of the following (6)(7)(8)(9) : [ ]a) PCO2 greater than 42 mm Hg (5.6 kPa) and pH less than 7.35 (new) [ ]b) Documented PCO2 increased more than 5 mm Hg (0.7 kPa) from disease baseline [ ]c) Airflow measurements[A] less than 60% of previous best or predicted (eg, peak expiratory flow rate less than 300 L/min) despite intensive emergent treatment(B) [ ]d) Required respiratory treatments that are performable only in acute inpatient setting [ ]III. Severe respiratory findings (not responsive to emergency and observation care treatment as appropriate) including 1 or more of the following(6)(9)(10): [ ]a) Respiratory distress as indicated by ALL of the following(6)(11): [ ]i) Patient with 1 or more of the following: [ ]1) Dyspnea (difficulty breathing) [ ]2) Tachypnea [ ]3) Abnormal breathing pattern (eg, chest retractions) [ ]4) Other evidence of difficulty breathing [ ]ii) Evidence of respiratory compromise indicated by 1 or more of the following: [ ]1) Hypoxemia [ ]2) Altered mental status [ ]3) Other evidence of respiratory compromise (eg, pulmonary edema on chest x-ray) [ ]b) Stridor [ ]c) Gross hemoptysis(12) [ ]d) Acute cyanosis [ ]IV. Chronic lung disease with severe deterioration (not responsive to emergency and observation care treatment as appropriate) as indicated by 1 or more of the following(7) (13): [ ]a) SaO2 5% below baseline in patient with chronic hypoxemia [ ]b) New requirement for supplemental oxygen to keep SaO2 at baseline or acceptable level [ ]c) Required supplemental oxygen performable only in acute inpatient setting [ ]d) Severe airflow or ventilation abnormalities [ ]e) Previouslymobile patient unable to walk between rooms [ ]f) Inability to eat or sleep due to dyspnea [ ]g) Altered mental status that is severe or persistent [ ]V. Empyema or lung abscess(14)(15) [ ]Vl. Severe atelectasis or lung collapse(16)(17) [ ]Josie. Tuberculosis requiring inpatient treatment as indicated by 1 or more of the following(18)(19)(20)(21): [ ]a) Diagnosis suspected (eg, symptomatic patient from endemic area or in high-risk population, with abnormal chest imaging) and cannot be ruled out within observation care timeframe (ie, sputum analysis, nucleic acid amplification techniques not rapidly available or not diagnostic) [ ]b) Severely symptomatic patient (eg, Hypoxemia, Hemodynamic instability, Tachypnea) [ ]c) Ypbtc-mklm-wzntspxfy infection suspected in newly diagnosed patient (eg, treatment regimen may require near-term adjustment) [ ]d) Newly diagnosed patient at high-risk of short-term deterioration (eg, HIV positive, frail, immunocompromised, chronic lung disease) [ ]e) High infectivity suspected (eg, laryngeal disease, cavitary pulmonary lesions, ongoing positivity of sputum) and 1 or more of the following: [ ]i) Unexposed household contacts at high risk (eg, immunocompromised, elderly, infants, chronic lung disease) [ ]ii) Patient unable or unwilling to avoid exposing others (eg, significant psychiatric disease, substance abuse, developmental disability) [ ]f) Complication of tuberculosis requiring inpatient treatment (eg , constrictive pericarditis, tubercular meningitis) [ ]g) Hospitalization mandated by public health authority (eg, patient continually noncompliant with directly observed therapy) [ ]VIII. High-risk pulmonary infection as indicated by 1 or more of the following(22)(23)(24)(25): [ ]a) Temperature less than 95 degrees F (35 degrees C) or greater than 103.1 degrees F (39.5 degrees C) [ ]b) Hemodynamic instability [ ]c) Immunocompromised patient (eg, AIDS, post transplant, neutropenic)(26)(27) [ ]d) History of severe COPD(28) [ ]e) History of severely symptomatic congestive heart failure(29) [ ]f) Other high-risk comorbidity (eg, poorly controlled diabetes, cirrhosis, chronic renal insufficiency) [ ]g) Hypoxemia [ ]h) severe stridor (30) [ ]i) Outpatient, observation, or recovery facility therapy has failed, is not appropriate, or is not feasible. [ ]IX. Complications of tracheostomy that remains after emergency or observation level care(31)(32)(33)(34) [ ]X. Respiratory complications of organ transplant (eg, rejection, respiratory failure, respiratory infection)(27) [ ]XI. Severe pulmonary arterial hypertension or pulmonary vascular disease requiring inpatient care indicated by 1 or more of the following(35)(36)(37)(38): [ ]a) Initiation or change of vasodilators (IV, subcutaneous, or inhaled) or other vasoactive medications needed [ ]b) IV anticoagulation needed (eg, immediate anticoagulation necessary, alternatives not appropriate) [ ]c) Arterial or pulmonary artery catheter monitoring needed due to infusion or other treatment [ ]XII. Cystic fibrosis requiring inpatient care as indicated by 1 or more of the following(39)(40): [ ]a) Severe exacerbation that does not respond to intensified home therapy(41) [ ]b) Severe exacerbation with patient unable to perform prescribed treatments at home [ ]c) Pneumonia [ ]d) Pneumothorax(42) [ ]e) Atelectasis [ ]f) Hemoptysis(43) [ ]XIII. Bronchiectasis requiring inpatient care as indicated by 1 or more of the following(44)(45): [ ]a) Respiratory distress [ ]b) Severe exacerbation and outpatient or observation care therapy has failed, is not appropriate, or is not feasible. [ ]XIV. Sarcoidosis requiring inpatient care as indicated by 1 or more of the following(46)(47)(48): [ ]a) Respiratory distress [ ]b) Cardiac involvement with arrhythmia(49) [ ]c) Outpatient or observation care therapy has failed, is not appropriate, or is not feasible. [ ]XV. Intestitial lung disease requiring inpatient care as indicated by 1 or more of the following(50)(51): [ ]a) Respiratory distress [ ]b) Severe exacerbation and outpatient or observation care therapy has failed, is not appropriate, or is not feasible [ ]XVI. Allergic pneumonitis requiring inpatient care as indicated by 1 or more of the following(52): [ ]a) Respiratory distress [ ]b) Acute eosinophilic pneumonia [ ]c) [place] with cardiac involvement [ ]d) Outpatient or observation care therapy has failed, is not appropriate, or is not feasible [ ]XVIl. Severe right heart failure requiring inpatient care as indicated by 1 or more of the following(35)(53)(54): [ ]a) Respiratory distress [ ]b) Debilitating anasarca that remains after emergency or observation level care (eg, tissue [ ]c) breakdown with severe infection, inability to void due to edema) [C](41)(42)(43)(44) [ ]d) Hemodynamic instability [ ]e) Syncope [ ]f) Angina that requires inpatient care (eg, not treatable in emergency or observation level of care) [ ]g) Increasing organ failure (eg, liver congestion with significant and worsening or new elevation of transaminases) [ ]XVIll. Injury requiring inpatient care (medical) as indicated by 1 or more of the following(59)(60)(61) [ ]a) Significant inhalation injury (eg, smoke inhalation, other toxic inhalation)(62)(63)(64) [ ]b) Airway obstruction that remains or is unstable after emergency or observation level care(65)(66) [ ]c) Severe pain requiring acute inpatient management [ ]d) Lung contusion(67) [ ]e) Flail chest(68) [ ]f) Bronchial tree injury [ ]g) Air or fat emboli [ ]h) Other injury not treatable in emergency or observation level care (eg, hemothorax)(55) [ ]XlX. Pulmonary hemorrhage or significant hemoptysis(12)(43)(69) [ ]XXl. Complications of transplanted lung indicated by 1 or more of the following(70)(71) [ ]a) Acute graft rejection requiring inpatient management (eg, intravenous immunosuppression)(72)(73)(74) [ ]b) Failure of transplant lung as indicated by 1 or more of the following(75)(76): [ ]i) Anastomotic leak [ ]ii) Airway ischemia or necrosis [ ]iii) Airway fistula [ ]iv) Obstructing granulation tissue requiring intervention [ ]v) Bronchial stenosis or stricture requiring intervention [ ]vi) Tracheobronchomalacia requiring intervention [ ]vii) Severe airflow or ventilation abnormalities [ ]viii) Severe respiratory findings [ ]c) Infection requiring inpatient management (eg, Hemodynamic instability, need for intravenous antimicrobial treatment)(77)(78)(79)(80)(81)(82 [ ]d) Other complication of transplanted lung (eg, obliterative bronchiolitis, plastic bronchitis, thrombotic microangiopathy, constrictive pericarditis) requiring inpatient management(83)(84)(85)(86)(87) [X ]XXll. Inpatient palliative care needed.[D](88)(89)(90)(91) [ ]XXlll. Pulmonary Disease condition, symptom, or finding for which emergency and observation care have failed or are not considered appropriate. The original [email or web address] content created by [employer] has been revised. The portions of the content which have been revised are identified through the use of italic text, and [facility] has neither reviewed nor approved the modified material. All other unmodified content is copyright [email or web address]. Please see references footnoted in the original [email or web address] edition 2014 Admission Criteria Met?: Yes EDUARDO HUTSON Dec 09, 2016 06:25
[2016-12-09] MEDS ORDERED: DEXT10TA2 PO (06:59)
[2016-12-09] MEDS: ADDERALL XR PO SCH (08:00)
[2016-12-09] MEDS: hydroCHLOROthiazide 12.5 MG CAPSULE PO SCH (08:14)
[2016-12-09] MEDS: risperiDONE 1 MG TABLET. PO SCH ×2 (08:14→21:51)
[2016-12-09] MEDS: FINASTERIDE 5 MG TABLET. PO SCH (08:14)
[2016-12-09] MEDS: DOCUSATE SODIUM 100 MG CAPSULE. PO SCH ×2 (08:14→21:52)
[2016-12-09] MEDS: TAMSULOSIN 0.4 MG CAP.ER.24H. PO SCH (08:14)
[2016-12-09] MEDS: FLUoxetine HCL 20 MG CAPSULE PO SCH (08:14)
[2016-12-09] MEDS: lamoTRIgine 100 MG TABLET. PO SCH ×2 (08:14→21:52)
[2016-12-09] MEDS: CARISOPRODOL 350 MG TABLET PO SCH ×2 (08:14→21:51)
[2016-12-09] MEDS: PANTOPRAZOLE 40 MG TABLET.DR. PO SCH (08:14)
[2016-12-09] MEDS: MORPHINE ER 30 MG TABLET.ER PO SCH ×2 (08:15→21:52)
[2016-12-09] MEDS: LOSARTAN POTASSIUM 50 MG TABLET. PO SCH (08:16)
--- NOTE | 2016-12-09 10:25 | PDOC ---
PULMONARY PROGRESS NOTES Subjective NO SOA Vitals Vital Signs Date Time Temp Pulse Resp B/P (MAP) Pulse Ox O2 Delivery O2 Flow Rate FiO2 12/09/16 08:16 64 123/73 12/09/16 08:15 91 Room Air 3.0 12/09/16 07:18 98.4 18 98.4 General: Alert, No acute distress Lungs: Clear Cardiovascular: S1, S2 Abdomen: Soft Neuro Exam: Alert Extremities: No Edema Skin: Warm Labs Laboratory Tests Test 12/07/16 20:30 12/08/16 03:20 Urine Collection Type Unknown Urine Color Yellow Urine Clarity Clear Urine pH 6.0 Urine Specific [place] <=1.005 Urine Protein Negative mg/dL (NEG-TRACE) Urine Glucose (UA) Negative mg/dL (NEG) Urine Ketones (Stick) Negative mg/dL (NEG) Urine Blood Moderate (NEG) Urine Nitrite Negative (NEG) Urine Bilirubin Negative (NEG) Urine Urobilinogen Dipstick 1.0 mg/dL (0.2 mg/dL) Urine Leukocyte Esterase Negative (NEG) Urine RBC 11-20 /HPF (0-2) Urine WBC Occ /HPF (0-4) Urine Squamous Epithelial Cells Occ /LPF Urine Bacteria 0 /HPF (0-FEW) White Blood Count 9.7 x10^3/uL (4.0-11.0) Red Blood Count 3.64 x10^6/uL (4.30-5.70) Hemoglobin 10.3 g/dL (13.0-17.5) Hematocrit 30.7 % (39.0-53.0) Mean Corpuscular Volume 84 fL (79-100) Mean Corpuscular Hemoglobin 28 pg (25-35) Mean Corpuscular Hemoglobin Concent 34 g/dL (31-37) Red Cell Distribution Width 14.2 % (11.5-14.5) Platelet Count 204 x10^3/uL (140-400) Neutrophils (%) (Auto) 77 % (31-73) Lymphocytes (%) (Auto) 17 % (24-48) Monocytes (%) (Auto) 5 % (0-9) Eosinophils (%) (Auto) 1 % (0-3) Basophils (%) (Auto) 0 % (0-3) Neutrophils # (Auto) 7.5 x10^3uL (1.8-7.7) Lymphocytes # (Auto) 1.6 x10^3/uL (1.0-4.8) Monocytes # (Auto) 0.5 x10^3/uL (0.0-1.1) Eosinophils # (Auto) 0.1 x10^3/uL (0.0-0.7) Basophils # (Auto) 0.0 x10^3/uL (0.0-0.2) Prothrombin Time 14.5 SEC (11.7-14.0) Prothromb Time International Ratio 1.2 (0.8-1.1) Sodium Level 138 mmol/L (136-145) Potassium Level 3.3 mmol/L (3.5-5.1) Chloride Level 103 mmol/L (98-107) Carbon Dioxide Level 29 mmol/L (21-32) Anion Gap 6 (6-14) Blood Urea Nitrogen 14 mg/dL (8-26) Creatinine 1.1 mg/dL (0.7-1.3) Estimated GFR (Cockcroft-Gault) 68.3 BUN/Creatinine Ratio 13 (6-20) Glucose Level 152 mg/dL (70-99) Calcium Level 8.0 mg/dL (8.5-10.1) Phosphorus Level 2.7 mg/dL (2.6-4.7) Magnesium Level 2.3 mg/dL (1.8-2.4) Total Bilirubin 0.3 mg/dL (0.2-1.0) Aspartate Amino Transf (AST/SGOT) 70 U/L (15-37) Alanine Aminotransferase (ALT/SGPT) 43 U/L (16-63) Alkaline Phosphatase 95 U/L (46-116) Total Protein 5.8 g/dL (6.4-8.2) Albumin 2.4 g/dL (3.4-5.0) Albumin/Globulin Ratio 0.7 (1.0-1.7) Medications Active Scripts Medications Dose Route/Sig Max Daily Dose Days Date Category Dextroamphetamine Sulfate 10 Mg Tablet 30 Mg PO 12/09/16 Reported Fluoxetine Hcl 20 Mg Capsule 1 Cap PO DAILY 12/07/16 Reported Finasteride 5 Mg Tablet 5 Mg PO DAILY 12/07/16 Reported Lamotrigine 200 Mg Tablet 1 Tab PO BID 12/07/16 Reported Olanzapine 20 Mg Tablet 1 Tab PO QHS 12/07/16 Reported Losartan-Hctz 50-12.5 Mg Tab (Losartan/Hydrochlorothiazide) 1 Each Tablet 1 Tab PO DAILY 12/07/16 Reported Omeprazole 40 Mg Capsule.dr 1 Cap PO DAILY 12/07/16 Reported Simvastatin 40 Mg Tablet 1 Tab PO QHS 12/07/16 Reported Meloxicam 15 Mg Tablet 1 Tab PO DAILY 12/07/16 Reported Tamsulosin Hcl 0.4 Mg Cap.er.24h 1 Cap PO DAILY 12/07/16 Reported Levothyroxine Sodium 100 Mcg Tablet 1 Tab PO DAILY 12/07/16 Reported Risperidone 3 Mg Tablet 1 Tab PO BID 12/07/16 Reported Carisoprodol 350 Mg Tablet 1 Tab PO BID 12/07/16 Reported Zolpidem Tartrate 10 Mg Tablet 1 Tab PO QHS 12/07/16 Reported Morphine Sulfate 30 Mg Tablet 100 Mg PO BID 12/07/16 Reported Impression . 1. A 5 cm left upper lobe mass with left hilar and aortopulmonary mediastinal adenopathy. These findings are highly suggestive of primary bronchogenic cancer. 2. postobstructive pneumonitis. 3. Underlying suspected chronic obstructive pulmonary disease. 4. Chronic narcotic dependence. Plan . 1. S/P bronchoscopy . Endobronchial mass OLIVIA, prelim biopsy c/w NSCLC 2. Unlikely resectable, left AP window /left hilar adenopathy, will need PET scan as OP. will do BONE SCAN TODAY 3. We will obtain full PFTs. 4. Continue bronchodilators. 5. Continue present empiric antibiotics. 6. Discussed with Dr. Elmore. Consult Oncology PJ RUBIN MD Dec 09, 2016 10:25
--- NOTE | 2016-12-09 10:53 | PDOC ---
PROGRESS NOTES Chief Complaint Chief Complaint 1. 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 NEw dx NON SMALL CELL LUNG CA by tissue bx via bronchoscopy (12/08) 3. RLS,stable 4. Chronic back pain on high doses opiates 5. PRev smoker, quit 15yrs ago 6. Post obstructive pneumonitis 7. REactive lymphadenopathy 8. MOd PCM with albumin 2.9 9. Hyponatremia, mild 133 10, Hypokalemia, replaced History of Present Illness History of Present Illness Tissue bx proves to be NON SMALL CELL LUNG CA NO issues, feels well, actually wants to go home My current MS Contin at 30 BID - seems to be working well for him and agrees - pt thinks otherwise, was on 100 BID PLAN: Whole body bone scan to check for mets COnsult heme onc re this new dx radiation onc also consulted PFTs inpt - in case resection is an option pending stage Dw Pulmo and Keep current pain regimen MAy Dc IVF Cont IV levaquin for now for the post obstructive pneumonitis Vitals Vitals Vital Signs Date Time Temp Pulse Resp B/P (MAP) Pulse Ox O2 Delivery O2 Flow Rate FiO2 12/09/16 08:16 64 123/73 12/09/16 08:15 91 Room Air 3.0 12/09/16 07:18 98.4 18 98.4 Physical Exam General: Alert, Oriented X3, Cooperative, No acute distress Heart: Regular rate, Normal S1, Normal S2 Lungs: Clear Abdomen: Normal bowel sounds, Soft, No tenderness, No hepatosplenomegaly, No masses Extremities: No clubbing, No cyanosis, No edema, Normal pulses, No tenderness/ swelling Skin: No rashes, No breakdown, No significant lesion Review of Systems Review of Systems denies, 14 pt reviewed Comment Review of Relevant I have reviewed the following items jelly (where applicable) has been applied. Labs Laboratory Tests Test 12/07/16 20:30 12/08/16 03:20 Urine Collection Type Unknown Urine Color Yellow Urine Clarity Clear Urine pH 6.0 Urine Specific [place] <=1.005 Urine Protein Negative mg/dL (NEG-TRACE) Urine Glucose (UA) Negative mg/dL (NEG) Urine Ketones (Stick) Negative mg/dL (NEG) Urine Blood Moderate (NEG) Urine Nitrite Negative (NEG) Urine Bilirubin Negative (NEG) Urine Urobilinogen Dipstick 1.0 mg/dL (0.2 mg/dL) Urine Leukocyte Esterase Negative (NEG) Urine RBC 11-20 /HPF (0-2) Urine WBC Occ /HPF (0-4) Urine Squamous Epithelial Cells Occ /LPF Urine Bacteria 0 /HPF (0-FEW) White Blood Count 9.7 x10^3/uL (4.0-11.0) Red Blood Count 3.64 x10^6/uL (4.30-5.70) Hemoglobin 10.3 g/dL (13.0-17.5) Hematocrit 30.7 % (39.0-53.0) Mean Corpuscular Volume 84 fL (79-100) Mean Corpuscular Hemoglobin 28 pg (25-35) Mean Corpuscular Hemoglobin Concent 34 g/dL (31-37) Red Cell Distribution Width 14.2 % (11.5-14.5) Platelet Count 204 x10^3/uL (140-400) Neutrophils (%) (Auto) 77 % (31-73) Lymphocytes (%) (Auto) 17 % (24-48) Monocytes (%) (Auto) 5 % (0-9) Eosinophils (%) (Auto) 1 % (0-3) Basophils (%) (Auto) 0 % (0-3) Neutrophils # (Auto) 7.5 x10^3uL (1.8-7.7) Lymphocytes # (Auto) 1.6 x10^3/uL (1.0-4.8) Monocytes # (Auto) 0.5 x10^3/uL (0.0-1.1) Eosinophils # (Auto) 0.1 x10^3/uL (0.0-0.7) Basophils # (Auto) 0.0 x10^3/uL (0.0-0.2) Prothrombin Time 14.5 SEC (11.7-14.0) Prothromb Time International Ratio 1.2 (0.8-1.1) Sodium Level 138 mmol/L (136-145) Potassium Level 3.3 mmol/L (3.5-5.1) Chloride Level 103 mmol/L (98-107) Carbon Dioxide Level 29 mmol/L (21-32) Anion Gap 6 (6-14) Blood Urea Nitrogen 14 mg/dL (8-26) Creatinine 1.1 mg/dL (0.7-1.3) Estimated GFR (Cockcroft-Gault) 68.3 BUN/Creatinine Ratio 13 (6-20) Glucose Level 152 mg/dL (70-99) Calcium Level 8.0 mg/dL (8.5-10.1) Phosphorus Level 2.7 mg/dL (2.6-4.7) Magnesium Level 2.3 mg/dL (1.8-2.4) Total Bilirubin 0.3 mg/dL (0.2-1.0) Aspartate Amino Transf (AST/SGOT) 70 U/L (15-37) Alanine Aminotransferase (ALT/SGPT) 43 U/L (16-63) Alkaline Phosphatase 95 U/L (46-116) Total Protein 5.8 g/dL (6.4-8.2) Albumin 2.4 g/dL (3.4-5.0) Albumin/Globulin Ratio 0.7 (1.0-1.7) Microbiology 12/08/16 Gram Stain - Final, Complete Medications Current Medications Ondansetron HCl (Zofran) 4 mg PRN Q6HRS PRN IV NAUSEA/VOMITING; Start 12/07/16 at 17:30 Prochlorperazine Edisylate (Compazine) 10 mg PRN Q6HRS PRN IV NAUSEA/VOMITING; Start 12/07/16 at 17:30 Prochlorperazine (Compazine) 25 mg PRN Q12HR PRN [place] NAUSEA/VOMITING; Start 12/07 at 17:30 Al Hydroxide/Mg Hydroxide (Mylanta Plus Xs) 30 ml PRN Q3HRS PRN PO HEARTBURN / GAS; Start 12/07/16 at 17:30 Calcium Carbonate/ Glycine (Tums) 500 mg PRN Q3HRS PRN PO UPSET STOMACH; Start 12/07/16 at 17:30 Zolpidem Tartrate (Ambien) 10 mg PRN QHS PRN PO INSOMNIA, MAY REPEAT IN 1HR; Start 12/07/16 at 17:30 Oxycodone HCl (Roxicodone) 5 mg PRN Q3HRS PRN PO BREAKTHROUGH PAIN; Start at 17:30 Morphine Sulfate 2 mg PRN Q2HR PRN IV PAIN; Start 12/07/16 at 17:30 Oxycodone/ Acetaminophen (Percocet 5/325) 1 tab PRN Q4HRS PRN PO MILD PAIN, 1ST CHOICE; Start 12/07/16 at 17:30 Oxycodone/ Acetaminophen (Percocet 5/325) 2 tab PRN Q4HRS PRN PO MODERATE PAIN , SEVERE PAIN; Start 12/07/16 at 17:30 Acetaminophen (Tylenol) 650 mg PRN Q6HRS PRN PO Headaches, Temp > 101.5F; Start 12/07/16 at 17:30 Docusate Sodium (Colace) 100 mg BID PO Last administered on 12/09/16 08:14; Start 12/07/16 at 21:00 Magnesium Hydroxide (Milk Of Magnesia) 2,400 mg PRN Q12HR PRN PO CONSTIPATION; Start 12/07/16 at 17:30 Lactulose 20 gm PRN Q12HR PRN PO CONSTIPATION; Start 12/07/16 at 17:30 Bisacodyl (Dulcolax Supp) 10 mg PRN DAILY PRN [place] CONSTIPATION; Start 12/07/16 at 17:30 Heparin Sodium (Porcine) (Heparin Sq) 5,000 unit Q8HRS SQ Last administered on 12/09/16 06:18; Start 12/07/16 at 22:00 Lorazepam (Ativan) 2 mg PRN Q4HRS PRN IV ANXIETY / AGITATION; Start 12/07/16 at 17:30 Lorazepam (Ativan) 1 mg PRN Q6HRS PRN PO ANXIETY / AGITATION Last administered on 12/07/16 17:48; Start 12/07/16 at 17:30 Morphine Sulfate (Ms Contin) 30 mg BID PO Last administered on 12/09/16 08:15 ; Start 12/07/16 at 21:00 Levofloxacin/ Dextrose (Levaquin Per Pharmacy) 1 each PRN DAILY PRN MC SEE COMMENTS; Start 12/07/16 at 17:45 Sodium Chloride 1,000 ml @ 100 mls/hr Q10H IV Last administered on 12/09/16 06:23; Start 12/07/16 at 17:45 Potassium Chloride (Klor-Con) 40 meq 1X ONCE PO Last administered on 12/07/16 18:47; Start 12/07/16 at 17:45; Stop 12/07/16 at 17:50; Status DC Levofloxacin/ Dextrose 100 ml @ 100 mls/hr Q24H IV Last administered on 17:13; Start 12/07/16 at 18:00 Carisoprodol (Soma) 350 mg BID PO Last administered on 12/09/16 08:14; Start 12/07/16 at 21:00 Finasteride (Proscar) 5 mg DAILY PO Last administered on 12/09/16 08:14; Start 12/08/16 at 09:00 Fluoxetine HCl (PROzac) 20 mg DAILY PO Last administered on 12/09/16 08:14; Start 12/08/16 at 09:00 Levothyroxine Sodium (Synthroid) 100 mcg DAILY07 PO Last administered on 06:17; Start 12/08/16 at 07:00 Simvastatin (Zocor) 40 mg QHS PO Last administered on 12/08/16 21:58; Start at 21:00 Tamsulosin HCl (Flomax) 0.4 mg DAILY PO Last administered on 12/09/16 08:14; Start 12/08/16 at 09:00 Lamotrigine (LaMICtal) 200 mg BID PO Last administered on 12/09/16 08:14; Start 12/07/16 at 21:00 Non-Formulary Medication 1 tab DAILY PO ; Start 12/08/16 at 09:00; Status UNV Olanzapine (ZyPREXA) 20 mg QHS PO Last administered on 12/08/16 21:57; Start 12/07/16 at 21:00 Pantoprazole Sodium (Protonix) 40 mg DAILYAC PO Last administered on 12/09/16 08:14; Start 12/08/16 at 07:30 Risperidone (RisperDAL) 3 mg BID PO Last administered on 12/09/16 08:14; Start 12/07/16 at 21:00 Losartan Potassium (Cozaar) 50 mg DAILY PO Last administered on 12/09/16 08:16 ; Start 12/08/16 at 09:00 Hydrochlorothiazide (Microzide) 12.5 mg DAILY PO Last administered on 08:14; Start 12/08/16 at 09:00 Potassium Chloride 50 ml @ 50 mls/hr 1X ONCE IV ; Start 12/08/16 at 09:45; Stop 12/08/16 at 10:44; Status UNV Potassium Chloride 100 ml @ 100 mls/hr Q1H IV Last administered on 12/08/16t 15:06; Start 12/08/16 at 10:00; Stop 12/08/16 at 11:59; Status DC Ondansetron HCl (Zofran) 4 mg PRN Q6HRS PRN IV NAUSEA/VOMITING; Start 12/08/16 at 10:45; Stop 12/09/16 at 10:44; Status DC Fentanyl Citrate (Fentanyl 2ml Vial) 25 mcg PRN Q5MIN PRN IV MILD PAIN; Start 12/08/16 at 10:45; Stop 12/09/16 at 10:44; Status DC Fentanyl Citrate (Fentanyl 2ml Vial) 50 mcg PRN Q5MIN PRN IV MODERATE PAIN; Start 12/08/16 at 10:45; Stop 12/09/16 at 10:44; Status DC Morphine Sulfate 1 mg PRN Q10MIN PRN IV SEVERE PAIN; Start 12/08/16 at 10:45; Stop 12/09/16 at 10:44; Status DC Ringer's Solution 1,000 ml @ 30 mls/hr Q24H IV ; Start 12/08/16 at 10:44; Stop 12/08/16 at 22:43; Status DC Lidocaine HCl 2 ml PRN 1X PRN ID PRIOR TO IV START; Start 12/08/16 at 10:45; Stop 12/09/16 at 10:44; Status DC Hydromorphone HCl (Dilaudid) 0.5 mg PRN Q10MIN PRN IV SEV PAIN, Second choice; Start 12/08/16 at 10:45; Stop 12/09/16 at 10:44; Status DC Prochlorperazine Edisylate (Compazine) 5 mg PACU PRN PRN IV NAUSEA, MRX1; Start 12/08/16 at 10:45; Stop 12/09/16 at 10:44; Status DC Albuterol Sulfate (Ventolin Neb Soln) 2.5 mg 1X ONCE NEB Last administered on 12/08/16t 10:53; Start 12/08/16 at 11:00; Stop 12/08/16 at 11:01; Status DC Propofol 20 ml @ As Directed STK-MED ONCE IV ; Start 12/08/16 at 10:49; Stop 02/14 at 12:53; Status DC Lidocaine HCl (Lidocaine Pf 2% Vial) 5 ml STK-MED ONCE .ROUTE ; Start 12/08/16 at 10:49; Stop 12/08/16 at 12:53; Status DC Albuterol Sulfate (Ventolin Neb Soln) 2.5 mg STK-MED ONCE .ROUTE ; Start at 10:47; Stop 12/08/16 at 12:54; Status DC Non-Formulary Medication 1 ea DAILY08 PO ; Start 12/09/16 at 08:00 Active Scripts Active Reported Dextroamphetamine Sulfate 10 Mg Tablet 30 Mg PO Fluoxetine Hcl 20 Mg Capsule 1 Cap PO DAILY Finasteride 5 Mg Tablet 5 Mg PO DAILY Lamotrigine 200 Mg Tablet 1 Tab PO BID Olanzapine 20 Mg Tablet 1 Tab PO QHS Losartan-Hctz 50-12.5 Mg Tab (Losartan/Hydrochlorothiazide) 1 Each Tablet 1 Tab PO DAILY Omeprazole 40 Mg Capsule.dr 1 Cap PO DAILY Simvastatin 40 Mg Tablet 1 Tab PO QHS Meloxicam 15 Mg Tablet 1 Tab PO DAILY Tamsulosin Hcl 0.4 Mg Cap.er.24h 1 Cap PO DAILY Levothyroxine Sodium 100 Mcg Tablet 1 Tab PO DAILY Risperidone 3 Mg Tablet 1 Tab PO BID Carisoprodol 350 Mg Tablet 1 Tab PO BID Zolpidem Tartrate 10 Mg Tablet 1 Tab PO QHS Morphine Sulfate 30 Mg Tablet 100 Mg PO BID Vitals/I & O Vital Sign - Last 24 Hours 12/08/16 12/08/16 12/08/16 12/08/16 11:29 11:44 11:59 12:07 Temp 98 98.0 98.0 98.0 98.0 98.0 Pulse 84 79 80 Resp 18 18 18 B/P (MAP) 119/67 105/63 115/60 Pulse Ox 95 93 93 O2 Delivery Room Air Room Air Room Air Room Air O2 Flow Rate 6 12/08/16 12/08/16 12/08/16 12/08/16 12:32 12:34 14:31 16:32 Temp 98.2 98.2 Pulse 60 84 Resp 18 B/P (MAP) 115/60 90/51 (64) Pulse Ox 93 93 93 O2 Delivery Room Air Room Air O2 Flow Rate 6.0 8/10/17 8/10/17 8/10/17 8/11/17 20:00 20:00 21:58 00:00 Temp 98.8 98.3 98.8 98.3 Pulse 76 72 Resp 18 17 20 B/P (MAP) 113/72 (86) 132/65 (87) Pulse Ox 94 96 O2 Delivery Room Air Room Air Room Air Room Air 12/09/16 12/09/16 12/09/16 12/09/16 01:58 03:00 07:18 08:00 Temp 98.4 98.4 Pulse 64 Resp 16 18 B/P (MAP) 123/73 (90) Pulse Ox 91 O2 Delivery Nasal Cannula Nasal Cannula Room Air Room Air O2 Flow Rate 3.0 3.0 12/09/16 12/09/16 08:15 08:16 Pulse 64 B/P (MAP) 123/73 Pulse Ox 91 O2 Delivery Room Air O2 Flow Rate 3.0 Intake and Output 12/08/16 12/08/16 12/09/16 14:59 22:59 06:59 Intake Total 500 ml 490 ml 300 ml Output Total 500 ml Balance 500 ml -10 ml 300 ml HI LOPEZ MD Dec 09, 2016 10:53
--- NOTE | 2016-12-09 12:40 | PDOC ---
Provider Note Provider Note Med Onc consult: 1. NSCLC - A 5 cm left upper lobe mass with left hilar and aortopulmonary mediastinal adenopathy. Plan PET scan next week See dictation # [id number] BROWN AUSTIN MD Dec 09, 2016 12:40
--- NOTE | 2016-12-09 13:29 | PDOC ---
PROGRESS NOTES Objective Objective MR. Dasilva is a pleasant 63 year old gentleman. Admitted to room 672. Pt. gives the history of multiple falls w- sustaining no serious injuries. Pt. has cough, no hemoptysis, has chest pain, and shortness of breadth. He has lost about 30 lbs. of weight. He was recently admitted at [facility], with these complaints, where he had Ct chest revealing 5cm mass in the left upper lobe.Since admitted here he had bronchoscopy and biopsy, the pathological results awaited. Pt. has smoked for 34 years and quit 4 years ago. He also gives history of left lung pneumonia 4 years ago, treated with antibiotics. Bone scan is scheduled for today and plan for PET scan. MRI brain done at [facility] is reported negative. Plan: Await for biopsy report, bone and PET scan results. Will follow the pt. with you. Vital Signs Date Time Temp Pulse Resp B/P (MAP) Pulse Ox O2 Delivery O2 Flow Rate FiO2 12/09/16 12:15 90 Room Air 3.0 12/09/16 10:59 98.0 87 17 123/72 (89) 98.0 Intake and Output 12/09/16 07:00 Intake Total 1290 ml Output Total 500 ml Balance 790 ml Intake Oral 790 ml IV Total 500 ml Output Urine Total 500 ml # Voids 4 # Bowel Movements 2 Comment Review of Relevant I have reviewed the following items jelly (where applicable) has been applied. Labs Laboratory Tests Test 12/07/16 20:30 12/08/16 03:20 Urine Collection Type Unknown Urine Color Yellow Urine Clarity Clear Urine pH 6.0 Urine Specific [place] <=1.005 Urine Protein Negative mg/dL (NEG-TRACE) Urine Glucose (UA) Negative mg/dL (NEG) Urine Ketones (Stick) Negative mg/dL (NEG) Urine Blood Moderate (NEG) Urine Nitrite Negative (NEG) Urine Bilirubin Negative (NEG) Urine Urobilinogen Dipstick 1.0 mg/dL (0.2 mg/dL) Urine Leukocyte Esterase Negative (NEG) Urine RBC 11-20 /HPF (0-2) Urine WBC Occ /HPF (0-4) Urine Squamous Epithelial Cells Occ /LPF Urine Bacteria 0 /HPF (0-FEW) White Blood Count 9.7 x10^3/uL (4.0-11.0) Red Blood Count 3.64 x10^6/uL (4.30-5.70) Hemoglobin 10.3 g/dL (13.0-17.5) Hematocrit 30.7 % (39.0-53.0) Mean Corpuscular Volume 84 fL (79-100) Mean Corpuscular Hemoglobin 28 pg (25-35) Mean Corpuscular Hemoglobin Concent 34 g/dL (31-37) Red Cell Distribution Width 14.2 % (11.5-14.5) Platelet Count 204 x10^3/uL (140-400) Neutrophils (%) (Auto) 77 % (31-73) Lymphocytes (%) (Auto) 17 % (24-48) Monocytes (%) (Auto) 5 % (0-9) Eosinophils (%) (Auto) 1 % (0-3) Basophils (%) (Auto) 0 % (0-3) Neutrophils # (Auto) 7.5 x10^3uL (1.8-7.7) Lymphocytes # (Auto) 1.6 x10^3/uL (1.0-4.8) Monocytes # (Auto) 0.5 x10^3/uL (0.0-1.1) Eosinophils # (Auto) 0.1 x10^3/uL (0.0-0.7) Basophils # (Auto) 0.0 x10^3/uL (0.0-0.2) Prothrombin Time 14.5 SEC (11.7-14.0) Prothromb Time International Ratio 1.2 (0.8-1.1) Sodium Level 138 mmol/L (136-145) Potassium Level 3.3 mmol/L (3.5-5.1) Chloride Level 103 mmol/L (98-107) Carbon Dioxide Level 29 mmol/L (21-32) Anion Gap 6 (6-14) Blood Urea Nitrogen 14 mg/dL (8-26) Creatinine 1.1 mg/dL (0.7-1.3) Estimated GFR (Cockcroft-Gault) 68.3 BUN/Creatinine Ratio 13 (6-20) Glucose Level 152 mg/dL (70-99) Calcium Level 8.0 mg/dL (8.5-10.1) Phosphorus Level 2.7 mg/dL (2.6-4.7) Magnesium Level 2.3 mg/dL (1.8-2.4) Total Bilirubin 0.3 mg/dL (0.2-1.0) Aspartate Amino Transf (AST/SGOT) 70 U/L (15-37) Alanine Aminotransferase (ALT/SGPT) 43 U/L (16-63) Alkaline Phosphatase 95 U/L (46-116) Total Protein 5.8 g/dL (6.4-8.2) Albumin 2.4 g/dL (3.4-5.0) Albumin/Globulin Ratio 0.7 (1.0-1.7) Microbiology 12/08/16 Gram Stain - Final, Complete Medications Current Medications Ondansetron HCl (Zofran) 4 mg PRN Q6HRS PRN IV NAUSEA/VOMITING; Start 12/07/16 at 17:30 Prochlorperazine Edisylate (Compazine) 10 mg PRN Q6HRS PRN IV NAUSEA/VOMITING; Start 12/07/16 at 17:30 Prochlorperazine (Compazine) 25 mg PRN Q12HR PRN [place] NAUSEA/VOMITING; Start 12/07 at 17:30 Al Hydroxide/Mg Hydroxide (Mylanta Plus Xs) 30 ml PRN Q3HRS PRN PO HEARTBURN / GAS; Start 12/07/16 at 17:30 Calcium Carbonate/ Glycine (Tums) 500 mg PRN Q3HRS PRN PO UPSET STOMACH; Start 12/07/16 at 17:30 Zolpidem Tartrate (Ambien) 10 mg PRN QHS PRN PO INSOMNIA, MAY REPEAT IN 1HR; Start 12/07/16 at 17:30 Oxycodone HCl (Roxicodone) 5 mg PRN Q3HRS PRN PO BREAKTHROUGH PAIN; Start at 17:30 Morphine Sulfate 2 mg PRN Q2HR PRN IV PAIN; Start 12/07/16 at 17:30 Oxycodone/ Acetaminophen (Percocet 5/325) 1 tab PRN Q4HRS PRN PO MILD PAIN, 1ST CHOICE; Start 12/07/16 at 17:30 Oxycodone/ Acetaminophen (Percocet 5/325) 2 tab PRN Q4HRS PRN PO MODERATE PAIN , SEVERE PAIN; Start 12/07/16 at 17:30 Acetaminophen (Tylenol) 650 mg PRN Q6HRS PRN PO Headaches, Temp > 101.5F; Start 12/07/16 at 17:30 Docusate Sodium (Colace) 100 mg BID PO Last administered on 12/09/16 08:14; Start 12/07/16 at 21:00 Magnesium Hydroxide (Milk Of Magnesia) 2,400 mg PRN Q12HR PRN PO CONSTIPATION; Start 12/07/16 at 17:30 Lactulose 20 gm PRN Q12HR PRN PO CONSTIPATION; Start 12/07/16 at 17:30 Bisacodyl (Dulcolax Supp) 10 mg PRN DAILY PRN [place] CONSTIPATION; Start 12/07/16 at 17:30 Heparin Sodium (Porcine) (Heparin Sq) 5,000 unit Q8HRS SQ Last administered on 12/09/16 06:18; Start 12/07/16 at 22:00 Lorazepam (Ativan) 2 mg PRN Q4HRS PRN IV ANXIETY / AGITATION; Start 12/07/16 at 17:30 Lorazepam (Ativan) 1 mg PRN Q6HRS PRN PO ANXIETY / AGITATION Last administered on 12/07/16 17:48; Start 12/07/16 at 17:30 Morphine Sulfate (Ms Contin) 30 mg BID PO Last administered on 12/09/16 08:15 ; Start 12/07/16 at 21:00 Levofloxacin/ Dextrose (Levaquin Per Pharmacy) 1 each PRN DAILY PRN MC SEE COMMENTS; Start 12/07/16 at 17:45 Sodium Chloride 1,000 ml @ 100 mls/hr Q10H IV Last administered on 12/09/16 06:23; Start 12/07/16 at 17:45; Stop 12/09/16 at 10:51; Status DC Potassium Chloride (Klor-Con) 40 meq 1X ONCE PO Last administered on 12/07/16 18:47; Start 12/07/16 at 17:45; Stop 12/07/16 at 17:50; Status DC Levofloxacin/ Dextrose 100 ml @ 100 mls/hr Q24H IV Last administered on 17:13; Start 12/07/16 at 18:00 Carisoprodol (Soma) 350 mg BID PO Last administered on 12/09/16 08:14; Start 12/07/16 at 21:00 Finasteride (Proscar) 5 mg DAILY PO Last administered on 12/09/16 08:14; Start 12/08/16 at 09:00 Fluoxetine HCl (PROzac) 20 mg DAILY PO Last administered on 12/09/16 08:14; Start 12/08/16 at 09:00 Levothyroxine Sodium (Synthroid) 100 mcg DAILY07 PO Last administered on 06:17; Start 12/08/16 at 07:00 Simvastatin (Zocor) 40 mg QHS PO Last administered on 12/08/16 21:58; Start at 21:00 Tamsulosin HCl (Flomax) 0.4 mg DAILY PO Last administered on 12/09/16 08:14; Start 12/08/16 at 09:00 Lamotrigine (LaMICtal) 200 mg BID PO Last administered on 12/09/16 08:14; Start 12/07/16 at 21:00 Non-Formulary Medication 1 tab DAILY PO ; Start 12/08/16 at 09:00; Status UNV Olanzapine (ZyPREXA) 20 mg QHS PO Last administered on 12/08/16 21:57; Start 12/07/16 at 21:00 Pantoprazole Sodium (Protonix) 40 mg DAILYAC PO Last administered on 12/09/16 08:14; Start 12/08/16 at 07:30 Risperidone (RisperDAL) 3 mg BID PO Last administered on 12/09/16 08:14; Start 12/07/16 at 21:00 Losartan Potassium (Cozaar) 50 mg DAILY PO Last administered on 12/09/16 08:16 ; Start 12/08/16 at 09:00 Hydrochlorothiazide (Microzide) 12.5 mg DAILY PO Last administered on 08:14; Start 12/08/16 at 09:00 Potassium Chloride 50 ml @ 50 mls/hr 1X ONCE IV ; Start 12/08/16 at 09:45; Stop 12/08/16 at 10:44; Status UNV Potassium Chloride 100 ml @ 100 mls/hr Q1H IV Last administered on 12/08/16 15:06; Start 12/08/16 at 10:00; Stop 12/08/16 at 11:59; Status DC Ondansetron HCl (Zofran) 4 mg PRN Q6HRS PRN IV NAUSEA/VOMITING; Start 12/08/16 at 10:45; Stop 12/09/16 at 10:44; Status DC Fentanyl Citrate (Fentanyl 2ml Vial) 25 mcg PRN Q5MIN PRN IV MILD PAIN; Start 12/08/16 at 10:45; Stop 12/09/16 at 10:44; Status DC Fentanyl Citrate (Fentanyl 2ml Vial) 50 mcg PRN Q5MIN PRN IV MODERATE PAIN; Start 12/08/16 at 10:45; Stop 12/09/16 at 10:44; Status DC Morphine Sulfate 1 mg PRN Q10MIN PRN IV SEVERE PAIN; Start 12/08/16 at 10:45; Stop 12/09/16 at 10:44; Status DC Ringer's Solution 1,000 ml @ 30 mls/hr Q24H IV ; Start 12/08/16 at 10:44; Stop 12/08/16 at 22:43; Status DC Lidocaine HCl 2 ml PRN 1X PRN ID PRIOR TO IV START; Start 12/08/16 at 10:45; Stop 12/09/16 at 10:44; Status DC Hydromorphone HCl (Dilaudid) 0.5 mg PRN Q10MIN PRN IV SEV PAIN, Second choice; Start 12/08/16 at 10:45; Stop 12/09/16 at 10:44; Status DC Prochlorperazine Edisylate (Compazine) 5 mg PACU PRN PRN IV NAUSEA, MRX1; Start 12/08/16 at 10:45; Stop 12/09/16 at 10:44; Status DC Albuterol Sulfate (Ventolin Neb Soln) 2.5 mg 1X ONCE NEB Last administered on 12/08/16t 10:53; Start 12/08/16 at 11:00; Stop 12/08/16 at 11:01; Status DC Propofol 20 ml @ As Directed STK-MED ONCE IV ; Start 12/08/16 at 10:49; Stop 02/14 at 12:53; Status DC Lidocaine HCl (Lidocaine Pf 2% Vial) 5 ml STK-MED ONCE .ROUTE ; Start 12/08/16 at 10:49; Stop 12/08/16 at 12:53; Status DC Albuterol Sulfate (Ventolin Neb Soln) 2.5 mg STK-MED ONCE .ROUTE ; Start at 10:47; Stop 12/08/16 at 12:54; Status DC Non-Formulary Medication 1 ea DAILY08 PO ; Start 12/09/16 at 08:00 Active Scripts Active Reported Dextroamphetamine Sulfate 10 Mg Tablet 30 Mg PO Fluoxetine Hcl 20 Mg Capsule 1 Cap PO DAILY Finasteride 5 Mg Tablet 5 Mg PO DAILY Lamotrigine 200 Mg Tablet 1 Tab PO BID Olanzapine 20 Mg Tablet 1 Tab PO QHS Losartan-Hctz 50-12.5 Mg Tab (Losartan/Hydrochlorothiazide) 1 Each Tablet 1 Tab PO DAILY Omeprazole 40 Mg Capsule.dr 1 Cap PO DAILY Simvastatin 40 Mg Tablet 1 Tab PO QHS Meloxicam 15 Mg Tablet 1 Tab PO DAILY Tamsulosin Hcl 0.4 Mg Cap.er.24h 1 Cap PO DAILY Levothyroxine Sodium 100 Mcg Tablet 1 Tab PO DAILY Risperidone 3 Mg Tablet 1 Tab PO BID Carisoprodol 350 Mg Tablet 1 Tab PO BID Zolpidem Tartrate 10 Mg Tablet 1 Tab PO QHS Morphine Sulfate 30 Mg Tablet 100 Mg PO BID Vitals/I & O Vital Sign - Last 24 Hours 12/08/16 12/08/16 12/08/16 12/08/16 14:31 20:00 20:00 21:58 Temp 98.2 98.8 98.2 98.8 Pulse 84 76 Resp 18 18 17 B/P (MAP) 90/51 (64) 113/72 (86) Pulse Ox 93 94 O2 Delivery Room Air Room Air Room Air Room Air 12/09/16 12/09/16 12/09/16 12/09/16 00:00 01:58 03:00 07:18 Temp 98.3 98.4 98.3 98.4 Pulse 72 64 Resp 20 16 18 B/P (MAP) 132/65 (87) 123/73 (90) Pulse Ox 96 91 O2 Delivery Room Air Nasal Cannula Room Air 12/09/16 12/09/16 12/09/16 12/09/16 08:00 08:15 08:16 10:59 Temp 98.0 98.0 Pulse 64 87 Resp 17 B/P (MAP) 123/73 123/72 (89) Pulse Ox 91 90 O2 Delivery Room Air Room Air Room Air O2 Flow Rate 3.0 3.0 12/09/16 12:15 Pulse Ox 90 O2 Delivery Room Air O2 Flow Rate 3.0 Intake and Output 12/08/16 12/08/16 12/09/16 15:00 23:00 07:00 Intake Total 500 ml 490 ml 300 ml Output Total 500 ml Balance 500 ml -10 ml 300 ml CHARU CARMONA MD Dec 09, 2016 13:29
--- NOTE | 2016-12-09 15:46 | RAD ---
Bone scan 12/09/2016 Clinical history: Recently diagnosed with lung cancer. Technique: 3 hours after intravenous administration of 23 mCi of Technetium 99m MDP, whole body imaging of the axial and appendicular skeleton was performed using the gamma camera. Findings: No relevant prior studies are available for comparison. A focal area of increased activity is seen between the manubrium/sternum which is likely degenerative or related to previous injury. Areas of increased activity are seen involving both feet and ankles, both shoulders and both knees consistent with areas of degenerative change. No definite area of abnormally increased or decreased activity is seen to suggest evidence of skeletal metastatic disease. Impression: There is no scintigraphic evidence of metastatic disease to the skeleton.
--- NOTE | 2016-12-09 16:59 | PATHOLOGY ---
CYTOPATHOLOGY REPORT CLINICAL HISTORY: Lung mass. Opioid abuse, Lung cancer. See also [id number]. SPECIMEN(S) RECEIVED: A.Bronchoalveolar lavage, RML B.Bronchial brush, LLL C.Bronchial brush rinse, NOS FINAL DIAGNOSIS: A. Right middle lobe bronchoalveolar lavage, ThinPrep: - Focally reactive bronchial epithelial cells, squamous epithelial cells, pulmonary macrophages, and scattered inflammatory cells identified. B. Left lower lobe bronchial brushing, smear: - Atypical cells identified. - Paucicellular specimen containing few atypical cells and reactive bronchial epithelial cells showing air drying artifact, and few inflammatory cells identified. C. Bronchial brush rinse, ThinPrep: - Atypical cells identified. - Clusters of atypical cells, focally reactive bronchial epithelial cells, and inflammatory cells identified. (JPM:sonia; 12/09/2016) PATHOLOGIST: Cole Kohli M.D. REPORT ELECTRONICALLY SIGNED BY: Cole Kohli M.D. DATE/TIME: 12/09/2016 16:58 GROSS PATHOLOGY: A. Bronchoalveolar lavage, RML: The specimen is submitted unfixed, labeled "Mando Lozano Jr". Received by the Cytology Department is 4 mL of clear light pink fluid. One ThinPrep slide was prepared. B. Bronchial brush, LLL: The specimen is labeled "Mando Lozano Jr" and consists of one fixed slide. C. Bronchial brush rinse, NOS: The specimen is labeled "Mando Lozano Jr" and consists of a brush tip in fixative. One ThinPrep slide was prepared. (clt 12.08.2016) WEIGHER PRODUCTION(S): JUDITH Mejia([facility]) INITIAL CPT CODE(S): A; 36736 B; 07427 C; 54189 Professional services performed by [facility] at [facility] [address] [place] [address] Technical services performed by [facility] at [address] [place] [address], [address], [place] [address]. PATIENT: MANDO LOZANO JR /AGE: 1002/07/1955 (Age: 61) SEX: M PATIENT #: [id number] ALT CASE #: SPECIMEN COLLECTION DATE: 12/08/2016 SPECIMEN RECEIVED DATE: 12/08/[address] [facility] [address] [place] [address], [address] [place] [address] PHONE: [phone] DIRECTOR: Joseph Lawrence M.D. * * * END OF REPORT * * *
[2016-12-09] MEDS: OLANZapine 5 MG TABLET PO SCH (21:51)
[2016-12-09] MEDS: SIMVASTATIN 40 MG TABLET. PO SCH (21:51)
--- NOTE | 2016-12-09 22:10 | CONS ---
DATE OF CONSULTATION: 12/09/2016 REQUESTING PHYSICIAN: Dr. Deborah Elmore. REASON FOR CONSULTATION: Non-small cell lung cancer of the left upper lobe with mediastinal lymphadenopathy diagnosed by bronchoscopy and biopsy on 12/08/2016. HISTORY OF PRESENT ILLNESS: The patient is a 61-year-old gentleman who has a history of cigarette smoking for 35 years between the age of 16 to age 51, when he smoked 1-1/2 packs of cigarettes per day. He quit smoking approximately in 2006. He was admitted to [facility] on 12/07/2016, with altered mental status and multiple falls. He was taking MS Contin 100 mg b.i.d. and the etiology of encephalopathy was thought to be due to morphine. He underwent a CT scan of the head on 12/07/2016 that was unremarkable. He had a chest x-ray that revealed a mass in the left upper lobe of the lung and hence a CT scan of the chest was done on 12/07/2016, which revealed a 5 cm mass in the left upper lobe compatible with primary lung cancer along with hilar and mediastinal lymphadenopathy consistent with malignancy. He also had evidence of patchy infiltrates in the left upper lobe reflecting post-obstructive pneumonitis. He also has history of weight loss of over 20 pounds. No headache, no nausea or vomiting, no chest pain or hemoptysis, no shortness of breath. He has been taking narcotics for back pain and neck pain since 2002. He was evaluated by Pulmonary Medicine and the patient underwent a bronchoscopy on 12/08/[address] Simeon Ji. The bronchoscopy revealed large endobronchial mass causing total occlusion of the opening of the left upper lobe bronchus. Biopsies revealed non-small cell carcinoma. I was asked to see the patient for further evaluation and management of lung cancer. PAST MEDICAL HISTORY: Back pain, neck pain, osteoarthritis, narcotic dependence, history of depression. PAST SURGICAL HISTORY: Left shoulder surgery and back surgery. FAMILY HISTORY: Positive for hypertension. Father had colon cancer and mother had lung cancer. SOCIAL HISTORY: He has history of smoking 1-1/2 pack of cigarettes per day from the age of 16 until the age of 51. He quit smoking in 2006. 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 REVIEW OF SYSTEMS: A 12-point review of system was performed. Pertinent positives are mentioned in the history of present illness. Rest of the system review is negative. PHYSICAL EXAMINATION: GENERAL APPEARANCE: The patient is a 61-year-old gentleman who is in no acute cardiorespiratory distress. VITAL SIGNS: Blood pressure 123/72, temperature 98.0. HEENT: Atraumatic, normocephalic. Eyes: No icterus. NECK: Supple. CHEST: Bilaterally symmetrical. No crepitations or rhonchi heard. HEART: S1, S2 normal. ABDOMEN: Soft, nontender. No hepatosplenomegaly. CENTRAL NERVOUS SYSTEM: No focal neurological deficits. LYMPHATICS: No lymphadenopathy. SKIN: No rashes. PSYCHOLOGIC: Mood and affect are appropriate. MUSCULOSKELETAL: No joint effusions. LABORATORY DATA: From 12/08/2016, WBC 9.7, hemoglobin 10.3, platelet count 204, creatinine 1.1, calcium 8, total bilirubin 0.3, AST 70, ALT 43, alkaline phosphatase 95, total protein 5.8, and albumin 2.4. IMPRESSION AND PLAN: 1. Non-small cell lung cancer of the left upper lobe of the lung measuring 5 cm with evidence of metastatic disease to the left hilar region and the mediastinal lymph nodes suggestive of stage IIIA lung cancer. Final pathology report is still pending. I discussed in detail with the patient and his sister regarding the diagnosis and prognosis and the role of chemotherapy and radiation therapy in stage IIIA lung cancer. I have recommended a PET scan for completion staging workup. He already had a CT scan of the brain on 12/07/2016, which was negative for metastatic disease. Bone scan is pending. I have advised him to follow up with me next week. He will have a PET scan and he will follow up for further chemoradiation plans. I agree to consult Radiation Oncology. 2. Chronic narcotic dependence. Continue follow up with primary care physician for management. 3. Metabolic encephalopathy due to narcotics, improved. I discussed with Dr. Simeon Ji. BROWN AUSTIN MD DR: KIKA/nahid JOB#: [id number] / [id number] SIMEON Chery MD, CHERRIE MD [facility]
--- NOTE | 2016-12-09 22:53 | CONS ---
DATE OF CONSULTATION: 12/09/2016 REFERRING PHYSICIAN: Dr. Ji. The patient currently admitted in room 672. HISTORY OF PRESENT ILLNESS: The patient has been admitted under Dr. Ji with the complaints of sustaining multiple falls at home without any serious injuries. Other than that he is complaining about the chest pain in the center as well as on the left upper lobe area. He has some cough, shortness of breath. No hemoptysis. There is no difficulty in swallowing either. Since the admission at [facility] the patient also gives a history that he was admitted to [facility] and had some workup done with a CT scan, which was reviewed by Dr. Ji and stated to reveal 5 cm mass in the left upper lobe. Other than that the patient says that he lost about 30 pounds of weight loss in the past few months. The patient also had a bronchoscopic examination done on 12/08/2016 which had revealed a mass in the left upper lobe bronchus. CT scan of the chest at [facility] had also revealed some left hilar adenopathy, precarinal adenopathy and also aortopulmonary window lymph node. Also, the patient maybe having COPD. The patient reveals no headache, no nausea, vomiting, but does mention that he has some generalized weakness. He will be short of breath after a short walk like from room 652 to nurses' station. PAST MEDICAL HISTORY: The patient has COPD. Had a pneumonia in the left upper chest 4 years ago, was treated with antibiotics and did well. He has some depression. Had surgical manipulation on the left shoulder and has also osteoarthritis. The patient also has hypertension, which is well maintained as per the patient. FAMILY HISTORY: The patient's mother had CA lung and who secondary to that. PHYSICAL EXAMINATION: GENERAL: The patient is sitting comfortably in the bed. I did not see any cyanosis, no peripheral adenopathy in the bilateral neck, supraclavicular or axillary regions. HEAD AND NECK: Examination of head and neck area reveals normocephalic. ____ intact. No neurological weakness. CHEST: Reveals air entry to be fairly good on the right side of the lung and left lower lobe, while there is a reduced air entry in the left upper lobe noted, especially posteriorly on auscultation. The patient had a bronchoscopy which revealed a mass in the left upper lobe bronchus. A biopsy has been done on 12/08/2016 and we are awaiting the results of the same. CARDIOVASCULAR: The patient has no known cardiovascular disease except hypertension, which is well maintained on medications. Heart rate was regular without any murmurs. GASTROINTESTINAL: The patient has fairly good appetite secondary to the problem of the chest as well as voluntarily the patient has lost about 30 pounds of weight in the last few months. Other than that he has some constipation. No diarrhea, no abdominal pain. NEUROLOGIC: The patient is intact. EXTREMITIES: Reveal no edema or cyanosis. There is no clubbing of the fingernails. LABORATORY DATA: CBC done here reveals WBC at 9.7, hemoglobin 10.3, platelets 204. BUN 14, creatinine 1.1. IMPRESSION: A 61-year-old man, smoker of approximately 30 years, quit 10 years ago, admitted with a history of chest pain, shortness of breath, and multiple falls and bronchoscopic examination has revealed a mass in the left upper lobe bronchus. The patient had a CT scan at [facility] revealing a 5 cm mass in the left upper lobe and left hilar and precarinal and aortopulmonary window adenopathy. Other than that, a bone scan is scheduled to be done today and a PET scan will also be done. Also, the patient had MRI of the brain at the [facility], which was reported to be negative. PLAN: Would be to wait for the pathology report and also all the workup results data. This will reveal pathology of the tumor as well as the staging process. We will follow the patient with you. Thank you for let us examine and referring your patient to Radiation Oncology. CHARU CARMONA MD DR: MALLORY/nahid JOB#: [id number] / [id number] PJ Chery MD,
[2016-12-10 03:18] VITALS: BP 111/57
[2016-12-10] MEDS: LEVOTHYROXINE 100 MCG TABLET PO SCH (06:14)
[2016-12-10] MEDS: HEPARIN PF for SUB-Q USE 5,000 UNIT/0.5 ML VIAL. SQ SCH (06:18)
[2016-12-10 07:00] VITALS: BP 112/72
--- NOTE | 2016-12-10 09:55 | PDOC ---
PULMONARY PROGRESS NOTES Subjective NO SOA Vitals Vital Signs Date Time Temp Pulse Resp B/P (MAP) Pulse Ox O2 Delivery O2 Flow Rate FiO2 12/10/16 07:00 97.5 73 19 112/72 (85) 95 Room Air 97.5 12/09/16 23:15 2.0 General: Alert, No acute distress Lungs: Clear Cardiovascular: S1, S2 Abdomen: Soft Neuro Exam: Alert Extremities: No Edema Skin: Warm Medications Active Scripts Medications Dose Route/Sig Max Daily Dose Days Date Category Dextroamphetamine Sulfate 10 Mg Tablet 30 Mg PO 12/09/16 Reported Fluoxetine Hcl 20 Mg Capsule 1 Cap PO DAILY 12/07/16 Reported Finasteride 5 Mg Tablet 5 Mg PO DAILY 12/07/16 Reported Lamotrigine 200 Mg Tablet 1 Tab PO BID 12/07/16 Reported Olanzapine 20 Mg Tablet 1 Tab PO QHS 12/07/16 Reported Losartan-Hctz 50-12.5 Mg Tab (Losartan/Hydrochlorothiazide) 1 Each Tablet 1 Tab PO DAILY 12/07/16 Reported Omeprazole 40 Mg Capsule.dr 1 Cap PO DAILY 12/07/16 Reported Simvastatin 40 Mg Tablet 1 Tab PO QHS 12/07/16 Reported Meloxicam 15 Mg Tablet 1 Tab PO DAILY 12/07/16 Reported Tamsulosin Hcl 0.4 Mg Cap.er.24h 1 Cap PO DAILY 12/07/16 Reported Levothyroxine Sodium 100 Mcg Tablet 1 Tab PO DAILY 12/07/16 Reported Risperidone 3 Mg Tablet 1 Tab PO BID 12/07/16 Reported Carisoprodol 350 Mg Tablet 1 Tab PO BID 12/07/16 Reported Zolpidem Tartrate 10 Mg Tablet 1 Tab PO QHS 12/07/16 Reported Morphine Sulfate 30 Mg Tablet 100 Mg PO BID 12/07/16 Reported Impression . 1. A 5 cm left upper lobe mass with left hilar and aortopulmonary mediastinal adenopathy. These findings are highly suggestive of primary bronchogenic cancer. 2. postobstructive pneumonitis. 3. Underlying suspected chronic obstructive pulmonary disease. 4. Chronic narcotic dependence. Plan . 1. S/P bronchoscopy . Endobronchial mass OLIVIA, prelim biopsy c/w NSCLC 2. Unlikely resectable, left AP window /left hilar adenopathy, will need PET scan as OP. BONE SCAN NEG 3. We will obtain full PFTs.as OP 4. Continue bronchodilators. 5. Continue present empiric antibiotics. 6. Discussed with Dr. Elmore. Appreciated Oncology consult ok with dc home and f/u with me in 1 month PJ RUBIN MD Dec 10, 2016 09:55
[2016-12-10] MEDS: FLUoxetine HCL 20 MG CAPSULE PO SCH (10:45)
[2016-12-10] MEDS: PANTOPRAZOLE 40 MG TABLET.DR. PO SCH (10:46)
[2016-12-10] MEDS: DOCUSATE SODIUM 100 MG CAPSULE. PO SCH (10:46)
[2016-12-10] MEDS: CARISOPRODOL 350 MG TABLET PO SCH (10:46)
[2016-12-10] MEDS: risperiDONE 1 MG TABLET. PO SCH (10:46)
[2016-12-10] MEDS: TAMSULOSIN 0.4 MG CAP.ER.24H. PO SCH (10:47)
[2016-12-10] MEDS: LOSARTAN POTASSIUM 50 MG TABLET. PO SCH (10:47)
[2016-12-10] MEDS: lamoTRIgine 100 MG TABLET. PO SCH (10:47)
[2016-12-10] MEDS: hydroCHLOROthiazide 12.5 MG CAPSULE PO SCH (10:47)
[2016-12-10] MEDS: FINASTERIDE 5 MG TABLET. PO SCH (10:48)
[2016-12-10] MEDS: MORPHINE ER 30 MG TABLET.ER PO SCH (10:48)
--- NOTE | 2016-12-10 10:54 | PDOC ---
PROGRESS NOTES Subjective Subjective c/c - f/u of Non-small cell lung cancer ROS - no hemoptysis Objective Objective Vital Signs Date Time Temp Pulse Resp B/P (MAP) Pulse Ox O2 Delivery O2 Flow Rate FiO2 12/10/16 07:00 97.5 73 19 112/72 (85) 95 Room Air 97.5 12/09/16 23:15 2.0 Intake and Output 12/10/16 07:00 Intake Total 600 ml Balance 600 ml Intake Oral 600 ml # Voids 5 Physical Exam Heart: Normal S1, Normal S2 General: Alert, Oriented X3 Lungs: Clear to auscultation Neuro: Normal speech Psych/Mental Status: Mental status NL Assessment Assessment IMPRESSION AND PLAN: 1. Non-small cell lung cancer of the left upper lobe of the lung measuring 5 cm with evidence of metastatic disease to the left hilar region and the mediastinal lymph nodes suggestive of stage IIIA lung cancer. Final pathology report is still pending. I discussed in detail with the patient and his sister regarding the diagnosis and prognosis and the role of chemotherapy and radiation therapy in stage IIIA lung cancer. I have recommended a PET scan for completion staging workup. He already had a CT scan of the brain on 12/07/2016, which was negative for metastatic disease. Bone scan 12/09/16 is normal. I have advised him to follow up with me next week. He will have a PET scan and he will follow up for further chemoradiation plans. I agree to consult Radiation Oncology. 2. Chronic narcotic dependence. Continue follow up with primary care physician for management. 3. Metabolic encephalopathy due to narcotics, improved. I discussed with Dr. Simeon Ji and RN. Comment Review of Relevant I have reviewed the following items jelly (where applicable) has been applied. Labs Microbiology 12/08/16 Sputum Culture - Preliminary, Resulted 12/08/16 Sputum Result 1 - Preliminary, Resulted Medications Current Medications Ondansetron HCl (Zofran) 4 mg PRN Q6HRS PRN IV NAUSEA/VOMITING 1ST CHOICE; Start 12/07/16 at 17:30 Prochlorperazine Edisylate (Compazine) 10 mg PRN Q6HRS PRN IV NAUSEA/VOMITING 2ND CHOICE; Start 12/07/16 at 17:30 Prochlorperazine (Compazine) 25 mg PRN Q12HR PRN DC NAUSEA/VOMITING; Start 12/07 at 17:30 Al Hydroxide/Mg Hydroxide (Mylanta Plus Xs) 30 ml PRN Q3HRS PRN PO HEARTBURN / GAS; Start 12/07/16 at 17:30 Calcium Carbonate/ Glycine (Tums) 500 mg PRN Q3HRS PRN PO UPSET STOMACH; Start 12/07/16 at 17:30 Zolpidem Tartrate (Ambien) 10 mg PRN QHS PRN PO INSOMNIA, MAY REPEAT IN 1HR; Start 12/07/16 at 17:30 Oxycodone HCl (Roxicodone) 5 mg PRN Q3HRS PRN PO BREAKTHROUGH PAIN; Start at 17:30 Morphine Sulfate 2 mg PRN Q2HR PRN IV PAIN; Start 12/07/16 at 17:30 Oxycodone/ Acetaminophen (Percocet 5/325) 1 tab PRN Q4HRS PRN PO MILD PAIN, 1ST CHOICE; Start 12/07/16 at 17:30 Oxycodone/ Acetaminophen (Percocet 5/325) 2 tab PRN Q4HRS PRN PO MODERATE PAIN , SEVERE PAIN; Start 12/07/16 at 17:30 Acetaminophen (Tylenol) 650 mg PRN Q6HRS PRN PO Headaches, Temp > 101.5F; Start 12/07/16 at 17:30 Docusate Sodium (Colace) 100 mg BID PO Last administered on 12/09/16t 21:52; Start 12/07/16 at 21:00 Magnesium Hydroxide (Milk Of Magnesia) 2,400 mg PRN Q12HR PRN PO CONSTIPATION; Start 12/07/16 at 17:30 Lactulose 20 gm PRN Q12HR PRN PO CONSTIPATION; Start 12/07/16 at 17:30 Bisacodyl (Dulcolax Supp) 10 mg PRN DAILY PRN DC CONSTIPATION; Start 12/07/16 at 17:30 Heparin Sodium (Porcine) (Heparin Sq) 5,000 unit Q8HRS SQ Last administered on 12/10/16t 06:18; Start 12/07/16 at 22:00 Lorazepam (Ativan) 2 mg PRN Q4HRS PRN IV ANXIETY / AGITATION; Start 12/07/16 at 17:30 Lorazepam (Ativan) 1 mg PRN Q6HRS PRN PO ANXIETY / AGITATION Last administered on 12/07/16 17:48; Start 12/07/16 at 17:30 Morphine Sulfate (Ms Contin) 30 mg BID PO Last administered on 12/09/16 21:52 ; Start 12/07/16 at 21:00 Levofloxacin/ Dextrose (Levaquin Per Pharmacy) 1 each PRN DAILY PRN MC SEE COMMENTS; Start 12/07/16 at 17:45 Sodium Chloride 1,000 ml @ 100 mls/hr Q10H IV Last administered on 12/09/16 06:23; Start 12/07/16 at 17:45; Stop 12/09/16 at 10:51; Status DC Potassium Chloride (Klor-Con) 40 meq 1X ONCE PO Last administered on 12/07/16 18:47; Start 12/07/16 at 17:45; Stop 12/07/16 at 17:50; Status DC Levofloxacin/ Dextrose 100 ml @ 100 mls/hr Q24H IV Last administered on 17:22; Start 12/07/16 at 18:00 Carisoprodol (Soma) 350 mg BID PO Last administered on 12/09/16 21:51; Start 12/07/16 at 21:00 Finasteride (Proscar) 5 mg DAILY PO Last administered on 12/09/16 08:14; Start 12/08/16 at 09:00 Fluoxetine HCl (PROzac) 20 mg DAILY PO Last administered on 12/09/16 08:14; Start 12/08/16 at 09:00 Levothyroxine Sodium (Synthroid) 100 mcg DAILY07 PO Last administered on 06:14; Start 12/08/16 at 07:00 Simvastatin (Zocor) 40 mg QHS PO Last administered on 12/09/16 21:51; Start at 21:00 Tamsulosin HCl (Flomax) 0.4 mg DAILY PO Last administered on 12/09/16 08:14; Start 12/08/16 at 09:00 Lamotrigine (LaMICtal) 200 mg BID PO Last administered on 12/09/16 21:52; Start 12/07/16 at 21:00 Non-Formulary Medication 1 tab DAILY PO ; Start 12/08/16 at 09:00; Status UNV Olanzapine (ZyPREXA) 20 mg QHS PO Last administered on 12/09/16 21:51; Start 12/07/16 at 21:00 Pantoprazole Sodium (Protonix) 40 mg DAILYAC PO Last administered on 12/09/16 08:14; Start 12/08/16 at 07:30 Risperidone (RisperDAL) 3 mg BID PO Last administered on 12/09/16 21:51; Start 12/07/16 at 21:00 Losartan Potassium (Cozaar) 50 mg DAILY PO Last administered on 12/09/16 08:16 ; Start 12/08/16 at 09:00 Hydrochlorothiazide (Microzide) 12.5 mg DAILY PO Last administered on 08:14; Start 12/08/16 at 09:00 Potassium Chloride 50 ml @ 50 mls/hr 1X ONCE IV ; Start 12/08/16 at 09:45; Stop 12/08/16 at 10:44; Status UNV Potassium Chloride 100 ml @ 100 mls/hr Q1H IV Last administered on 12/08/16 15:06; Start 12/08/16 at 10:00; Stop 12/08/16 at 11:59; Status DC Ondansetron HCl (Zofran) 4 mg PRN Q6HRS PRN IV NAUSEA/VOMITING; Start 12/08/16 at 10:45; Stop 12/09/16 at 10:44; Status DC Fentanyl Citrate (Fentanyl 2ml Vial) 25 mcg PRN Q5MIN PRN IV MILD PAIN; Start 12/08/16 at 10:45; Stop 12/09/16 at 10:44; Status DC Fentanyl Citrate (Fentanyl 2ml Vial) 50 mcg PRN Q5MIN PRN IV MODERATE PAIN; Start 12/08/16 at 10:45; Stop 12/09/16 at 10:44; Status DC Morphine Sulfate 1 mg PRN Q10MIN PRN IV SEVERE PAIN; Start 12/08/16 at 10:45; Stop 12/09/16 at 10:44; Status DC Ringer's Solution 1,000 ml @ 30 mls/hr Q24H IV ; Start 12/08/16 at 10:44; Stop 12/08/16 at 22:43; Status DC Lidocaine HCl 2 ml PRN 1X PRN ID PRIOR TO IV START; Start 12/08/16 at 10:45; Stop 12/09/16 at 10:44; Status DC Hydromorphone HCl (Dilaudid) 0.5 mg PRN Q10MIN PRN IV SEV PAIN, Second choice; Start 12/08/16 at 10:45; Stop 12/09/16 at 10:44; Status DC Prochlorperazine Edisylate (Compazine) 5 mg PACU PRN PRN IV NAUSEA, MRX1; Start 12/08/16 at 10:45; Stop 12/09/16 at 10:44; Status DC Albuterol Sulfate (Ventolin Neb Soln) 2.5 mg 1X ONCE NEB Last administered on 12/08/16t 10:53; Start 12/08/16 at 11:00; Stop 12/08/16 at 11:01; Status DC Propofol 20 ml @ As Directed STK-MED ONCE IV ; Start 12/08/16 at 10:49; Stop 02/14 at 12:53; Status DC Lidocaine HCl (Lidocaine Pf 2% Vial) 5 ml STK-MED ONCE .ROUTE ; Start 12/08/16 at 10:49; Stop 12/08/16 at 12:53; Status DC Albuterol Sulfate (Ventolin Neb Soln) 2.5 mg STK-MED ONCE .ROUTE ; Start at 10:47; Stop 12/08/16 at 12:54; Status DC Non-Formulary Medication 1 ea DAILY08 PO ; Start 12/09/16 at 08:00 Active Scripts Active Reported Dextroamphetamine Sulfate 10 Mg Tablet 30 Mg PO Fluoxetine Hcl 20 Mg Capsule 1 Cap PO DAILY Finasteride 5 Mg Tablet 5 Mg PO DAILY Lamotrigine 200 Mg Tablet 1 Tab PO BID Olanzapine 20 Mg Tablet 1 Tab PO QHS Losartan-Hctz 50-12.5 Mg Tab (Losartan/Hydrochlorothiazide) 1 Each Tablet 1 Tab PO DAILY Omeprazole 40 Mg Capsule.dr 1 Cap PO DAILY Simvastatin 40 Mg Tablet 1 Tab PO QHS Meloxicam 15 Mg Tablet 1 Tab PO DAILY Tamsulosin Hcl 0.4 Mg Cap.er.24h 1 Cap PO DAILY Levothyroxine Sodium 100 Mcg Tablet 1 Tab PO DAILY Risperidone 3 Mg Tablet 1 Tab PO BID Carisoprodol 350 Mg Tablet 1 Tab PO BID Zolpidem Tartrate 10 Mg Tablet 1 Tab PO QHS Morphine Sulfate 30 Mg Tablet 100 Mg PO BID Vitals/I & O Vital Sign - Last 24 Hours 12/09/16 12/09/16 12/09/16 12/09/16 10:59 12:15 15:04 17:56 Temp 98.0 97.8 97.8 98.0 97.8 97.8 Pulse 87 70 70 Resp 17 18 18 B/P (MAP) 123/72 (89) 110/72 (85) 110/72 (85) Pulse Ox 90 90 94 94 O2 Delivery Room Air Room Air Room Air Room Air O2 Flow Rate 3.0 12/09/16 12/09/16 12/09/16 12/09/16 19:20 20:00 21:52 23:15 Temp 97.7 97.1 97.7 97.1 Pulse 83 66 Resp 18 16 16 B/P (MAP) 129/72 (91) 106/50 (68) Pulse Ox 93 98 O2 Delivery Room Air Room Air Room Air Nasal Cannula O2 Flow Rate 2.0 12/10/16 12/10/16 03:18 07:00 Temp 97.9 97.5 97.9 97.5 Pulse 68 73 Resp 16 19 B/P (MAP) 111/57 (75) 112/72 (85) Pulse Ox 94 95 O2 Delivery Room Air Room Air Intake and Output 12/09/16 12/09/16 12/10/16 15:00 23:00 07:00 Intake Total 400 ml 200 ml Balance 400 ml 200 ml BROWN AUSTIN MD Dec 10, 2016 10:54
[2016-12-10 11:00] VITALS: BP 124/75
[2016-12-10] MEDS: ADDERALL XR PO SCH (11:03)
--- NOTE | 2016-12-10 12:09 | PDOC3 ---
Discharge Summary Visit Information Date of Admission: Dec 07, 2016 Date of Discharge: Dec 10, 2016 Admitting Diagnosis Comment: 1. 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 NEw dx NON SMALL CELL LUNG CA by tissue bx via bronchoscopy (12/08) 3. RLS,stable 4. Chronic back pain on high doses opiates 5. PRev smoker, quit 15yrs ago 6. Post obstructive pneumonitis 7. REactive lymphadenopathy 8. MOd PCM with albumin 2.9 9. Hyponatremia, mild 133 10, Hypokalemia, replaced Brief Hospital Course Allergies Allergies Coded Allergies Type Severity Reaction Last Updated Verified No Known Drug Allergies 12/08/16 No Vital Signs Vital Signs Date Time Temp Pulse Resp B/P (MAP) Pulse Ox O2 Delivery O2 Flow Rate FiO2 12/10/16 11:00 97.6 70 19 124/75 (91) 95 Room Air 97.6 12/09/16 23:15 2.0 Brief Hospital Course Mr. Lozano is a 61 old male narc dependent high doses morphine at home 100 BID bec of chronic back pain, Admitted at [facility], transferred here when work up of his enceph incidentally revealed a lung mass that is concerning for malignancy,. Proved to be NSCLCa by bronch biopsy,. Bone scan neg, HEme onc consulted, PET scan as OP and ff up as OP for tx options, Stbel to dc, no hemoptysis, weight loss etc, Advised mS contin 30 BID instead of 100 BID (we were giving 30 BID), and he was doing fine, thinks the dose was ok, but pt thinks otherwise pt seen and examined Dc time 32 mins > 50% dc instructions etc DIpso: home COnsults, viky Ji Proc bronchoscopy OLIVIA mass Discharge Information Condition at Discharge: Improved, Stable Follow Up: Weeks (heme onc 1 week) Disposition/Orders: D/C to Home Scheduled Carisoprodol (Carisoprodol), 1 TAB PO BID, (Reported) Finasteride (Finasteride), 5 MG PO DAILY, (Reported) Fluoxetine Hcl (Fluoxetine Hcl), 1 CAP PO DAILY, (Reported) Lamotrigine (Lamotrigine), 1 TAB PO BID, (Reported) Levothyroxine Sodium (Levothyroxine Sodium), 1 TAB PO DAILY, (Reported) Losartan/Hydrochlorothiazide (Losartan-Hctz 50-12.5 Mg Tab), 1 TAB PO DAILY, ( Reported) Meloxicam (Meloxicam), 1 TAB PO DAILY, (Reported) Morphine Sulfate (Morphine Sulfate), 100 MG PO BID, (Reported) Olanzapine (Olanzapine), 1 TAB PO QHS, (Reported) Omeprazole (Omeprazole), 1 CAP PO DAILY, (Reported) Risperidone (Risperidone), 1 TAB PO BID, (Reported) Simvastatin (Simvastatin), 1 TAB PO QHS, (Reported) Tamsulosin Hcl (Tamsulosin Hcl), 1 CAP PO DAILY, (Reported) Zolpidem Tartrate (Zolpidem Tartrate), 1 TAB PO QHS, (Reported) Miscellaneous Medications Dextroamphetamine Sulfate (Dextroamphetamine Sulfate), 30 MG PO, (Reported) HI LOPEZ MD Dec 10, 2016 12:09
--- NOTE | 2016-12-12 15:23 | PATHOLOGY ---
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 See comment. COMMENT: Sections of the left upper lobe bronchial biopsies reveal a malignant epithelial neoplasm with extensive tumor necrosis. One of the biopsy segments reveals irregular solid nests of malignant cells which infiltrate a reactive and inflamed stroma. The malignant cells appear relatively large and have modest amounts of pale eosinophilic cytoplasm. The malignant cells possess an enlarged, ovoid to irregular hyperchromatic nuclei. The tumor shows no obvious gland formation or keratinization. A panel of immunohistochemical stains is obtained and yields the following results: AE1/AE3: Tumor cells positive Cytokeratin 7: Tumor cells positive CK5/6: Tumor cells negative P63: Tumor cells negative P40: Tumor cells negative TTF-1: Tumor cells positive CD56: Tumor cells negative Napsin A: Tumor cells focally weakly positive The morphologic and immunophenotypic findings are supportive of the diagnosis of a poorly differentiated adenocarcinoma. The case is also seen by Dr. Jeff, who concurs with the diagnosis. Special stains: Immunoperoxidase for AE1/AE3, Cytokeratin 7, CK5/6, p63, p40, TTF-1, CD56, Napsin A. (JPM:mgr/sophy; 12/12/2016) REPORT ELECTRONICALLY SIGNED BY: Cole Kohli M.D. DATE/TIME: 12/12/2016 15:23 * * * * * * * * GROSS PATHOLOGY: Received in formalin labeled "Mando Dasilva BBX OLIVIA," are three segments of ortiz soft tissue measuring from 0.1 up to 0.2 cm in maximum dimension. The specimen is submitted entirely in cassette A1. (JPM; 12/08/16) INITIAL CPT CODE(S): A; 29628, 33348, 21552, 98486, 74198, 97323, 49792, 73983, 24562 Professional services performed by [facility] at [address] [address] Technical services performed by [facility] at [address] [place] [address], [address], [place] [address]. SPECIMEN(S) RECEIVED: A.Bronchial biopsy OLIVIA CLINICAL HISTORY: Lung mass PATIENT: MARTAKRYSTIANAlistair JOHNSON /AGE: 1002/07/1955 (Age: 61) PATIENT #: [id number] ALT CASE #: SPECIMEN COLLECTION DATE: 12/08/2016 SPECIMEN RECEIVED DATE: 12/08/2016 [facility] - [id number] [place] [address] - PHONE: [phone] * * * END OF REPORT * * *
--- NOTE | 2016-12-13 16:13 | RESP ---
DATE OF SERVICE: 12/09/2016 Referred by myself. The patient's FVC was 4.38, which is 86% predicted, FEV1 2.98, which is 77% predicted, the FEV1/FVC ratio was mildly reduced. There was minimal response to bronchodilators. Flow volume loop was consistent with mild obstructive pattern. Lung volume showed increased total lung capacity of 127% predicted and increased residual volume 186% predicted. Diffusion capacity was normal. IMPRESSION: 1. Mild obstructive airway disease. 2. No response to bronchodilators. 3. Lung volumes consistent with air trapping and hyperinflation. 4. Normal diffusion capacity. PJ RUBIN MD DR: MAX/nahid JOB#: [id number] / [id number] LUDA
== END 2016-12-10 13:15 | disposition home or self-care (01) | DRG 180 ==
LOC: 1 WEST ICU 17:05 → 6 SOUTH 20:08
PROVIDERS: ADMIT Internal Medicine; ATTEND Internal Medicine
PROC: 0BB88ZX Excision of Left Upper Lobe Bronchus, Via Natural or Artificial Opening Endoscopic, Diagnostic (ICD-10-PCS; principal; 2016-12-08 11:00)
DX: C34.12 Malignant neoplasm of upper lobe, left bronchus or lung (principal); J18.9 Pneumonia, unspecified organism; G92 Toxic encephalopathy; E87.1 Hypo-osmolality and hyponatremia; J44.0 Chronic obstructive pulmonary disease with (acute) lower respiratory infection; E87.6 Hypokalemia; Z87.891 Personal history of nicotine dependence; Z82.49 Family history of ischemic heart disease and other diseases of the circulatory system; Z80.1 Family history of malignant neoplasm of trachea, bronchus and lung; Z80.0 Family history of malignant neoplasm of digestive organs; R29.6 Repeated falls; Q21.4 Aortopulmonary septal defect; G25.81 Restless legs syndrome; G89.29 Other chronic pain; I10 Essential (primary) hypertension; R59.1 Generalized enlarged lymph nodes; R59.0 Localized enlarged lymph nodes; W19.XXXA Unspecified fall, initial encounter; Y93.89 Activity, other specified; Y92.098 Other place in other non-institutional residence as the place of occurrence of the external cause; Y99.8 Other external cause status; Z60.2 Problems related to living alone; F32.9 Major depressive disorder, single episode, unspecified; M19.90 Unspecified osteoarthritis, unspecified site; T40.2X5A Adverse effect of other opioids, initial encounter; Y92.89 Other specified places as the place of occurrence of the external cause
CPT/HCPCS: 31622; 36415; 78306; 80053; 81001; 83735; 84100; 85027; 85610; 87070; 87205; 88104; 88112; 88305; 88341; 88342; 94060; 94640; 94729; 96374; A9503; J1956; J2704; J3480; J7030; J7613; 97116; 97530; J2001

== ENCOUNTER → 2016-12-15 | Outpatient (CLI) | payer MEDICARE, OTHER ==
[2016-12-10 11:00] VITALS: BP 124/75
[~2016-12-15] MED LIST: CARI350T14 PO; DEXT10TA2 PO; FINA5TAB4 PO; FLUO20CA8 PO; GADOBUTROL 10 MMOL/10 ML VIAL IV ONE; LAMO200T PO; LEVO100T5 PO; LOSA1TAB16 PO; MELO15TA23 PO; MORP30TA PO; OLAN20TA7 PO; OMEP40CA5 PO; RISP3TAB3 PO; SIMV40TA3 PO; TAMS0.4C2 PO; ZOLP10TA4 PO
--- NOTE | 2016-12-15 14:42 | RAD ---
INDICATION: Lung cancer staging. No priors. TECHNIQUE: Sagittal T1, axial T1, axial T2, axial FLAIR, axial T2 gradient, diffusion imaging with ADC map, postcontrast axial, and postcontrast coronal sequences are provided. The patient received 9 mL of intravenous Gadavist without complication. Comparison is a CT head from December 07, 2016. FINDINGS: There is prominence of the ventricles and sulci. A few scattered FLAIR hyperintensities in the supratentorial white matter are nonspecific but most suggestive of minimal small vessel ischemic disease. There is no acute intracranial hemorrhage or extra-axial fluid collection. There is no mass effect or midline shift. There is no restricted diffusion to suggest an acute infarct. There is no pathologic enhancement. Cervicomedullary junction is unremarkable. Pituitary and suprasellar region are unremarkable. Intracranial flow voids are preserved. There is minimal ethmoid mucosal thickening. Clival marrow signal is preserved. IMPRESSION: 1. No evidence of metastatic disease. 2. Brain parenchymal volume loss and minimal probable small vessel ischemic disease. Electronically signed by: Alan Moon MD (12/15/2016 2:39 PM) [facility]
== END | disposition home or self-care (01) ==
LOC: MRI 14:20
PROVIDERS: ATTEND Radiology Radiation Oncology
DX: C34.90 Malignant neoplasm of unspecified part of unspecified bronchus or lung (principal)
CPT/HCPCS: 70553; A9585

== ENCOUNTER → 2016-12-15 | Outpatient (CLI) | payer MEDICARE ==
[2016-12-10 11:00] VITALS: BP 124/75
[~2016-12-15] MED LIST changes: -GADOBUTROL 10 MMOL/10 ML VIAL IV ONE
--- NOTE | 2016-12-15 15:39 | RAD ---
PET oncologic study 12/15/2016 Technique: Blood glucose prior to injection: 124 mg/dL Scan region: Skull base to mid thigh Radiopharmaceutical: F-18 FDG 13.4 mCi IV Calibration time: Start 1135 hours and finished at 1305 hours Administration time: 1141 hours on 12/15/2016 Injection site: Left antecubital Postinjection imaging delay: Scan time 1238 hours on 12/15/2016 Clinical information: Initial staging; lung cancer Comparison: None available. Attenuation correction was performed utilizing a noncontrast, nondiagnostic CT. Findings: There is physiologic FDG activity identified in the brain parenchyma. Subcentimeter cervical lymph nodes are identified, none of which are pathologically enlarged or FDG avid. There is a 5.5 x 5.1 cm solid noncalcified mass in the left upper lobe with increased FDG activity, especially along the medial half of the mass (Max SUV 11.9). Left prevascular lymph node measures 22 m by short axis with increased FDG activity (Max SUV 10.9). Left hilar lymphadenopathy is present with short axis diameter of 22 mm (Max SUV 10.7). No FDG avid right hilar, pretracheal or subcarinal lymphadenopathy. No FDG avid axillary lymphadenopathy. Tree-in-bud nodular opacities noted in the left upper lobe without significant FDG activity. No suspicious pulmonary nodule is identified in the contralateral right lung. There are no pleural effusions. Heart size is within normal limits. Thoracic aorta is normal in course and caliber. Physiologic FDG uptake is identified within the genitourinary and gastrointestinal tracts. No FDG avid lymph nodes are identified in that the pelvis. No suspicious adrenal mass is identified. The gallbladder is present without adjacent inflammatory changes. There is mild FDG uptake involving the left greater trochanter suggestive of trochanteric bursitis. No suspicious FDG uptake is identified within the osseous structures. Impression: 1. 5.5 x 5.1 cm solid noncalcified mass in the left upper lobe is compatible with primary FDG avid malignancy. There is associated FDG avid left hilar and prevascular lymphadenopathy. No contralateral metastasis, supraclavicular nor right hilar lymphadenopathy. 2. Tree-in-bud nodular opacities in the left upper lobe, inferior to the mass may represent post obstructive inflammatory/infectious process and less likely a satellite lesions given lack of FDG activity. 3. No evidence for FDG avid metastasis within the abdomen and pelvis. 4. Mild increased FDG activity along the left greater trochanter suggestive of trochanteric bursitis.
== END | disposition home or self-care (01) ==
LOC: PETSC 11:12
PROVIDERS: ATTEND Internal Medicine Hematology & Oncology
DX: C34.90 Malignant neoplasm of unspecified part of unspecified bronchus or lung (principal)
CPT/HCPCS: 78815; A9552

== ENCOUNTER → 2017-02-23 | Outpatient (CLI) | payer MEDICARE, OTHER ==
[~2017-02-23] MED LIST changes: -LOSA1TAB16 PO; +LOSA1TAB19 PO
--- NOTE | 2017-02-23 12:41 | RAD ---
FDG tumor localization scan, PET/CT, 02/23/2017: History: Restaging lung cancer Following IV injection of 13.5 mCi of 18 F-FDG, imaging was performed from the skull base to the proximal thighs. The noncontrast CT component was performed for attenuation correction and anatomic localization purposes rather than for primary diagnosis. The patient's blood glucose level at the time of injection was 127 MG/DL. Comparison is made to a study from 12/15/2016. The hypermetabolic left upper lobe mass has decreased in size measuring 4.4 cm in width compared to a measurement of 5.5 cm on the radius study. Its maximum SUV is currently 11.0 compared to a value of 11.9 on the previous exam. Hypermetabolic adenopathy at the AP window and left hilum has also regressed. These nodes have decreased in size. The maximum SUV at the left hilum is now 4.3 compared to a value of 10.7 on the previous study. There is only a tiny residual focus of increased activity along the lateral aspect of the AP window, currently demonstrating a maximum SUV of 3.4. No new mediastinal or hilar adenopathy is detected. Physiologic activity is present in the neck. No hypermetabolic neck process is seen. Normal GI tract and urinary tract activity is present in the abdomen and pelvis. No hypermetabolic abdominal or pelvic lesion is identified. IMPRESSION: 1. The left upper lobe mass has decreased in size and decreased slightly in the degree of FDG uptake since 12/15/2016, indicating a favorable response to therapy. 2. Mediastinal and left hilar adenopathy has also significantly regressed as described above. 3. No new FDG PET abnormality is detected.
== END | disposition home or self-care (01) ==
LOC: PETSC 08:16
PROVIDERS: ATTEND Internal Medicine Hematology & Oncology
DX: C34.12 Malignant neoplasm of upper lobe, left bronchus or lung (principal); R59.0 Localized enlarged lymph nodes
CPT/HCPCS: 78815; A9552